=== PATIENT | female | born 1980 | race Caucasian/White ===

== ENCOUNTER 2016-10-31 22:00 | Emergency (ER) | payer OTHER ==
[~2016-10-31] VITALS: Ht 165.1 cm; Wt 99.8 kg
[~2016-10-31 22:00] MED LIST: ANUS2.5C2 PR; COLA100C3 PO; MILK OF MAGNESIUM PO; MOTR200T44 PO; REQU0.5T PO; TYLE325T5 PO
[2016-10-31] MEDS ORDERED: VYVA50CA (22:10)
[2016-10-31] MEDS ORDERED: PREG50CA (22:10)
[2016-10-31] MEDS ORDERED: ZALE10CA (22:10)
[2016-10-31] MEDS ORDERED: CARI350T20 (22:10)
[2016-10-31] MEDS ORDERED: CITA40TA4 (22:10)
[2016-11-01] MEDS ORDERED: IBUP80TA PO (05:51)
[2016-11-01 06:09] VITALS: BP 150/105
--- NOTE | 2016-11-01 08:31 | REP ---
Clinical: Trauma. Technique: AP and lateral views of the right elbow. Comparison: 01/21/2013. Findings: No acute fracture or dislocation. Skeletal structures, joint space, and surrounding soft tissues appear normal. Anterior and posterior fat pads are normal position. Impression: Normal right elbow. No acute fracture or dislocation. Signed by Patrick Dick MD 11/01/2016 08:23 A
== END 2016-11-01 06:10 | disposition home or self-care (01) ==
LOC: M ED 23:16
DX: S50.01XA Contusion of right elbow, initial encounter (principal); W19.XXXA Unspecified fall, initial encounter; Y92.018 Other place in single-family (private) house as the place of occurrence of the external cause; Y93.89 Activity, other specified; Y99.8 Other external cause status; Z79.899 Other long term (current) drug therapy; Z91.040 Latex allergy status; Z88.8 Allergy status to other drugs, medicaments and biological substances; Z91.041 Radiographic dye allergy status

== ENCOUNTER 2016-12-08 19:38 | Emergency (ER) | payer OTHER ==
[~2016-12-08] VITALS: Ht 160 cm; Wt 96.2 kg
[~2016-12-08 19:38] MED LIST changes: +CARI350T20; +CITA40TA4; +IBUP80TA PO; +PREG50CA; +VYVA50CA; +ZALE10CA
[2016-12-08] MEDS ORDERED: diazePAM 5 MG TAB PO ONE (21:00)
[2016-12-08] MEDS ORDERED: PREGABALIN 50 MG CAP (LYRICA) PO ONE ×2 (21:00)
[2016-12-08 21:20] VITALS: BP 139/80
== END 2016-12-08 21:26 | disposition home or self-care (01) ==
LOC: M ED 20:42
DX: Z76.0 Encounter for issue of repeat prescription (principal); M79.7 Fibromyalgia; J45.909 Unspecified asthma, uncomplicated; F41.9 Anxiety disorder, unspecified; Z79.899 Other long term (current) drug therapy

== ENCOUNTER 2017-02-03 18:14 | Emergency (ER) | payer OTHER ==
[~2017-02-03] VITALS: Ht 165.1 cm; Wt 95.7 kg
[~2017-02-03 18:14] MED LIST changes: +CARI350T PO; -CARI350T20; -CITA40TA4; +CITA40TA4 PO; -COLA100C3 PO; +COLA100C5 PO; -REQU0.5T PO; +REQU1TAB15 PO; -VYVA50CA; +VYVA50CA4
[2017-02-03] MEDS ORDERED: AMPHET/DEXTR PO (18:29)
[2017-02-03] MEDS ORDERED: MEDICAL MARIJUANA (18:29)
[2017-02-03] MEDS ORDERED: CBD OIL (18:29)
[2017-02-03] MEDS ORDERED: ERYTHROMYCIN OPHTH OINT As Ordered ONE (19:23)
[2017-02-03] MEDS ORDERED: TETRACAINE 0.5% OPHTH SOLN 4ML OD ONE (19:30)
[2017-02-03] MEDS ORDERED: FLUORESCEIN OPHTH 1 MG STRIP As Ordered ONE (19:43)
[2017-02-03] MEDS ORDERED: FLUORESCEIN OPHTH 1 MG STRIP OU ONE (19:45)
[2017-02-03] MEDS ORDERED: ERYTOIN8 OD (20:14)
[2017-02-03 20:25] VITALS: BP 140/99
[2017-02-03] MEDS ORDERED: ERYTHROMYCIN OPHTH OINT OD ONE (21:00)
== END 2017-02-03 20:27 | disposition home or self-care (01) ==
LOC: M ED 18:14
DX: H16.001 Unspecified corneal ulcer, right eye (principal); J45.909 Unspecified asthma, uncomplicated; K58.9 Irritable bowel syndrome, unspecified; M79.7 Fibromyalgia; G25.81 Restless legs syndrome; Z79.899 Other long term (current) drug therapy; Z91.040 Latex allergy status; Z91.041 Radiographic dye allergy status; Z88.8 Allergy status to other drugs, medicaments and biological substances

== ENCOUNTER → 2017-06-28 | Outpatient (REF) | payer OTHER ==
[~2017-06-28] MED LIST changes: +AMPHET/DEXTR PO; +CBD OIL; +ERYTOIN8 OD; +MEDICAL MARIJUANA
== END ==
LOC: M LAB REF 13:22
PROVIDERS: ATTEND Advanced Practice Midwife
DX: Z34.83 Encounter for supervision of other normal pregnancy, third trimester (principal)

== ENCOUNTER → 2017-07-07 | Outpatient (CLI) | payer OTHER ==
[2017-07-07 15:20] LABS: BASO % 0.4 % (0.0-1.0); EOS # 0.2 10^3/uL (0.0-0.50); EOS % 2.5 % (0.0-3.0); IMMATURE GRANULOCYTE % 0.7 % (0-0); LYMPH # 1.7 10^3/uL (1.5-4.5); MEAN CORPUSCULAR HEMOGLOBIN 25.1 pg (27.0-33.0); MEAN CORPUSCULAR HGB CONC 30.9 g/dl (32.0-36.5); MEAN CORPUSCULAR VOLUME 81.4 fl (80.0-96.0); MONO # 0.4 10^3/uL (0.0-0.8); MONO % 5.2 % (0.0-5.0); NEUTROPHILS # 5.1 10^3/uL (1.8-7.7); NEUTROPHILS % 68.2 % (36.0-66.0); PLATELET COUNT, AUTOMATED 228 10^3/uL (150-450); RED CELL DISTRIBUTION WIDTH 14.2 % (11.5-14.5); WHITE BLOOD COUNT 7.5 10^3/uL (4.0-10.0)
[2017-07-09 11:11] LABS: HBsAg Prenatal NEGATIVE (NEGATIVE)
== END ==
LOC: M LAB 12:52
PROVIDERS: ATTEND Advanced Practice Midwife
DX: Z3A.33 33 weeks gestation of pregnancy (principal)

== ENCOUNTER → 2017-07-08 | Outpatient (CLI) | payer OTHER ==
[~2017-07-08] MED LIST changes: +CELE40TA PO; +PRIL20CA9 PO
--- NOTE | 2017-07-08 12:59 | REP ---
Clinical: Anatomical evaluation. Comparison: None . Findings: Examination demonstrates a single live intrauterine in cephalic presentation. motion is identified by technologist. Placenta is noted anteriorly and grade one without evidence for placenta previa or abruption. Amniotic fluid volume is normal. Cervix measures 4.2 cm in length and appears closed. No evidence for nuchal cord. Gestational age by LMP 37 weeks 4 days with INOCENCIA 07/25/2017 . Gestational age by current measurements 37 weeks 0 days with INOCENCIA 07/29/2017 . FHR equals 141 beats per minute. BPD 9.2 cm 37 weeks 2 days HC 32.6 cm 36 weeks 6 days AC 33.1 cm 37 weeks 0 days FL 7.2 cm 36 weeks 6 days HL 6.4 cm 37 weeks 0 days HC/AC ratio 0.98 Estimated weight 3090 grams ( 46th percentile). Amniotic fluid index = 25.2 cm (7.4 - 24.1) Umbilical cord SD ratio = 2.32 (1.60 - 2.60) Anatomical assessment demonstrates normal structures including cranium, cavum, facial features, lungs, four-chamber heart/ventricular outflow tracts, diaphragm, stomach, cord insertion/three-vessel cord. Impression: Single live advanced gestation in cephalic presentation demonstrating appropriate interval growth. No gross anatomical abnormalities are appreciated. Signed by Patrick Dick MD 07/08/2017 12:51 P
== END ==
LOC: M RAD 11:43
PROVIDERS: ATTEND Advanced Practice Midwife
DX: Z34.83 Encounter for supervision of other normal pregnancy, third trimester (principal); Z3A.37 37 weeks gestation of pregnancy

== ENCOUNTER 2017-07-15 03:16 | Inpatient (IN) | payer OTHER ==
[~2017-07-15] VITALS: Ht 160 cm; Wt 113.0 kg
[~2017-07-15 03:16] MED LIST changes: -CELE40TA PO; -PRIL20CA9 PO
[2017-07-15 04:15] VITALS: BP 142/92
[2017-07-15] MEDS ORDERED: PRIL20CA9 PO (04:41)
[2017-07-15] MEDS ORDERED: CELE40TA PO (04:41)
[2017-07-15] MEDS ORDERED: METHYLERGONOVINE MALEATE 0.2 MG TAB PO PRN (04:45)
[2017-07-15] MEDS ORDERED: DOCUSATE SODIUM 100 MG CAP PO PRN (04:45)
[2017-07-15] MEDS ORDERED: MEASLES,MUMPS,RUBELLA VACCINE INJ (MMR-II) (90707) SC SCH (04:45)
[2017-07-15] MEDS ORDERED: ANUSOL HC CREAM 30GM TOP PRN (04:45)
[2017-07-15] MEDS ORDERED: RHOGAM 300 MCG (1500 IU) INJ (J2790) IM SCH (04:45)
[2017-07-15] MEDS ORDERED: MOM 30ML SUSPENSION UDC PO PRN (04:45)
[2017-07-15] MEDS ORDERED: DIBUCAINE 1% OINTMENT 30GM TOP PRN (04:45)
[2017-07-15] MEDS ORDERED: ACETAMINOPHEN 500 MG TAB PO PRN (04:45)
[2017-07-15] MEDS ORDERED: OXYTOCIN INJ 10 UNITS/ML VIAL (J2590) IM ONE (04:45)
[2017-07-15 04:55] VITALS: BP 140/82
[2017-07-15 05:20] VITALS: BP 128/80
--- NOTE | 2017-07-15 06:47 | HPE ---
DATE OF ADMISSION: 07/15/2017 HISTORY OF PRESENT ILLNESS: Ms. Wilhelm is a 37-year-old 5, para 4 who presents at 38 weeks, 4 days estimated gestational age (EGA) by last menstrual period (LMP), with complaints of contractions. She reports contractions started at midnight and progressively worsened. She reports active movements. Denies any vaginal bleeding. Her course is remarkable for late entry to care at 32 weeks as she had also elevated Glucola but has not completed a 3 hour glucose tolerance test. PAST MEDICAL HISTORY: 1. Fibromyalgia. 2. Posttraumatic stress disorder (PTSD). PAST SURGICAL HISTORY: She has had nasal surgery. PAST OBSTETRICAL HISTORY: She is 5, para 4. She has had 4 term vaginal deliveries. She is proven to 8 pounds, 1 ounce. ALLERGIES: 1. LATEX. 2. REGLAN. 3. IV CONTRAST. PHYSICAL EXAMINATION: VITAL SIGNS: Stable. She is afebrile. GENERAL APPEARANCE: No acute distress. ABDOMEN: Gravid, nontender. CERVICAL EXAM: She is 8 cm dilated, completely effaced with a bulging bag of fluid. LABS: Her blood type is O positive. Antibody screen is negative. Rubella is immune. RPR is nonreactive. Chlamydia and gonorrhea screens are negative. She had an elevated 1 hour Glucola of 133. She is Group B Streptococcus (GBS) negative. ASSESSMENT: 1. Ms. Wilhelm is a 37-year-old 5, para 4 at 38 weeks 4 days estimated gestational age (EGA) in active labor. 2. Reassuring status on heart rate tracing. PLAN: 1. Admit to labor and delivery. CBC, RPR, type and screen. 2. Anticipate spontaneous vaginal delivery.
--- NOTE | 2017-07-15 06:50 | DN ---
DATE: 07/15/2017 TIME OF : 041 GENDER: Male. APGARS: 9 and 9. WEIGHT: 3010 grams or 6 pounds 10 ounces. LACERATIONS: None. ANESTHESIA: None. ESTIMATED BLOOD LOSS: 300 mL. DELIVERY NOTE: On the July, at 0410, Ms. Wilhelm, a 37-year-old, 5, now para 5, had a spontaneous vaginal delivery of a live born male infant, Apgars 9 and 9, weight 3010 grams or 6 pounds 10 ounces. Head was delivered occiput anterior (OA) over an intact perineum, followed by delivery of shoulders and corpus. The was handed to the mom with a good cry. The cord was clamped times two and was cut. Cord blood was then obtained. Placenta was then drained and delivered grossly intact. 10 units of Pitocin was given intramuscular (IM). On inspection, the cervix, vagina and perineum was grossly intact and hemostatic. Mom and baby to recovery in stable condition. The couple has decided to name their son Loy.
[2017-07-15 07:01] VITALS: BP 147/104
[2017-07-15 07:47] LABS: MEAN CORPUSCULAR HEMOGLOBIN 24.9 pg (27.0-33.0); MEAN CORPUSCULAR HGB CONC 31.4 g/dl (32.0-36.5); MEAN CORPUSCULAR VOLUME 79.4 fl (80.0-96.0); PLATELET COUNT, AUTOMATED 211 10^3/uL (150-450); RED CELL DISTRIBUTION WIDTH 14.6 % (11.5-14.5); WHITE BLOOD COUNT 12.4 10^3/uL (4.0-10.0)
[2017-07-15] MEDS: IBUPROFEN 800 MG TAB PO PRN ×2 (09:23→18:21)
[2017-07-15] MEDS: PRENATAL VITAMINS CHEWABLE TABLET PO SCH (09:23)
[2017-07-15] MEDS: rOPINIRole 1MG TAB PO SCH ×2 (11:10→21:05)
[2017-07-15 18:21] VITALS: BP 173/102
[2017-07-15] MEDS: PERCOCET 5MG/325MG TAB PO PRN (18:39)
[2017-07-15] MEDS ORDERED: PERCOCET 5MG/325MG TAB PO PRN (18:45)
[2017-07-16] VITALS (10 sets, daily range): BP systolic 114–166; BP diastolic 55–102
[2017-07-16] MEDS: PERCOCET 5MG/325MG TAB PO PRN ×3 (00:58→20:11)
[2017-07-16 08:09] LABS: MEAN CORPUSCULAR HEMOGLOBIN 25.1 pg (27.0-33.0); MEAN CORPUSCULAR VOLUME 80.9 fl (80.0-96.0); PLATELET COUNT, AUTOMATED 194 10^3/uL (150-450); RED CELL DISTRIBUTION WIDTH 14.6 % (11.5-14.5); WHITE BLOOD COUNT 8.1 10^3/uL (4.0-10.0)
[2017-07-16] MEDS: FERRO SEQUEL PO SCH ×2 (08:13→20:09)
[2017-07-16] MEDS: rOPINIRole 1MG TAB PO SCH ×2 (08:13→20:09)
[2017-07-16] MEDS: PRENATAL VITAMINS CHEWABLE TABLET PO SCH (08:13)
[2017-07-16] MEDS: IBUPROFEN 800 MG TAB PO PRN (08:14)
[2017-07-16 08:46] LABS: ALBUMIN/GLOBULIN RATIO 0.63 (1.00-1.93); ALKALINE PHOSPHATASE 109 U/L (45-117); ALT/SGPT 16 U/L (12-78); ANION GAP 10 MEQ/L (8-16); AST/SGOT 28 U/L (7-37); BILIRUBIN,TOTAL 0.2 MG/DL (0.2-1.0); BLOOD UREA NITROGEN 8 MG/DL (7-18); CALCIUM LEVEL 7.9 MG/DL (8.5-10.1); CARBON DIOXIDE LEVEL 23 MEQ/L (21-32); CHLORIDE LEVEL 108 MEQ/L (98-107); CREATININE FOR GFR 0.77 MG/DL (0.55-1.02); GLOMERULAR FILTRATION RATE > 60.0 (>60); GLUCOSE, FASTING 76 MG/DL (70-105); POTASSIUM SERUM 3.7 MEQ/L (3.5-5.1); SODIUM LEVEL 141 MEQ/L (136-145); TOTAL PROTEIN 5.2 GM/DL (6.4-8.2); URIC ACID 5.7 MG/DL (2.6-6.0)
[2017-07-16] MEDS ORDERED: INFLUENZA QUADRIVALENT PF VACCINE 0.5ML SYRINGE (90686) IM ONE (09:00)
[2017-07-16] MEDS: CitaloPRAM (CeleXA) 20 MG TAB PO SCH (09:44)
[2017-07-16] MEDS: ONDANSETRON 4 MG ORAL DISINTEGRATING TAB (S0181) SL SCH ×2 (12:22→17:42)
[2017-07-16] MEDS: LABETALOL 100 MG TAB PO SCH (17:04)
[2017-07-17] MEDS: ONDANSETRON 4 MG ORAL DISINTEGRATING TAB (S0181) SL SCH ×3 (00:21→12:12)
[2017-07-17 02:40] VITALS: BP 133/80
[2017-07-17] MEDS: PERCOCET 5MG/325MG TAB PO PRN ×2 (06:03→12:15)
[2017-07-17 06:06] VITALS: BP 142/70
[2017-07-17] MEDS: LABETALOL 100 MG TAB PO SCH (06:06)
[2017-07-17 06:48] LABS: MEAN CORPUSCULAR HEMOGLOBIN 24.8 pg (27.0-33.0); MEAN CORPUSCULAR HGB CONC 30.8 g/dl (32.0-36.5); MEAN CORPUSCULAR VOLUME 80.7 fl (80.0-96.0); PLATELET COUNT, AUTOMATED 158 10^3/uL (150-450); RED CELL DISTRIBUTION WIDTH 14.6 % (11.5-14.5)
[2017-07-17 07:08] LABS: ALT/SGPT 14 U/L (12-78); AST/SGOT 21 U/L (7-37); BILIRUBIN,TOTAL < 0.1 MG/DL (0.2-1.0); CREATININE FOR GFR 0.77 MG/DL (0.55-1.02); GLOMERULAR FILTRATION RATE > 60.0 (>60); URIC ACID 5.6 MG/DL (2.6-6.0)
[2017-07-17 07:30] VITALS: BP 154/92
[2017-07-17 07:35] VITALS: BP 140/88
[2017-07-17] MEDS ORDERED: INFLUENZA QUADRIVALENT PF VACCINE 0.5ML SYRINGE (90686) IM ONE (09:00)
[2017-07-17] MEDS: CitaloPRAM (CeleXA) 20 MG TAB PO SCH (09:52)
[2017-07-17] MEDS: PRENATAL VITAMINS CHEWABLE TABLET PO SCH (09:52)
[2017-07-17] MEDS: FERRO SEQUEL PO SCH (09:52)
[2017-07-17] MEDS: rOPINIRole 1MG TAB PO SCH (09:53)
[2017-07-17 12:10] VITALS: BP 140/88
[2017-07-17] MEDS ORDERED: LABE10TAB PO (12:43)
[2017-07-17] MEDS ORDERED: IBUP-1114 PO (12:43)
[2017-07-17] MEDS ORDERED: ACET50TA PO (12:43)
[2017-07-18] MEDS ORDERED: SOMA350T PO (10:02)
== END 2017-07-17 13:45 | disposition home or self-care (01) | DRG 775 ==
LOC: M LDO 03:16 → M LDI 03:22 → M OBS 07:00
PROVIDERS: ADMIT Obstetrics & Gynecology; ATTEND Obstetrics & Gynecology
PROC: 10E0XZZ Delivery of Products of Conception, External Approach (ICD-10-PCS; principal; 2017-07-15)
DX: O80 Encounter for full-term uncomplicated delivery (principal); Z3A.38 38 weeks gestation of pregnancy; Z37.0 Single live birth; Z91.040 Latex allergy status; Z91.041 Radiographic dye allergy status; Z88.8 Allergy status to other drugs, medicaments and biological substances

== ENCOUNTER → 2017-09-23 | Outpatient (REF) | payer OTHER ==
[2017-09-23 20:09] LABS: BASO # 0.1 10^3/uL (0.0-0.2); EOS # 0.3 10^3/uL (0.0-0.50); HEMATOCRIT 32.1 % (36.0-47.0); HEMOGLOBIN 9.2 g/dl (12.0-16.0); IMMATURE GRANULOCYTE % 0.3 % (0-3.0); LYMPH # 2.6 10^3/uL (1.5-4.5); LYMPH % 42.3 % (24.0-44.0); MEAN CORPUSCULAR HEMOGLOBIN 22.8 pg (27.0-33.0); MEAN CORPUSCULAR HGB CONC 28.7 g/dl (32.0-36.5); MEAN CORPUSCULAR VOLUME 79.5 fl (80.0-96.0); MONO # 0.4 10^3/uL (0.0-0.8); MONO % 6.5 % (0.0-5.0); NEUTROPHILS # 2.8 10^3/uL (1.8-7.7); NEUTROPHILS % 44.9 % (36.0-66.0); PLATELET COUNT, AUTOMATED 428 10^3/uL (150-450); RED BLOOD COUNT 4.04 10^6/uL (4.00-5.40); RED CELL DISTRIBUTION WIDTH 15.7 % (11.5-14.5); WHITE BLOOD COUNT 6.1 10^3/uL (4.0-10.0)
[2017-09-23 20:20] LABS: ALBUMIN 3.6 GM/DL (3.2-5.2); ALBUMIN/GLOBULIN RATIO 0.95 (1.00-1.93); ALKALINE PHOSPHATASE 128 U/L (45-117); ALT/SGPT 26 U/L (12-78); ANION GAP 9 MEQ/L (8-16); AST/SGOT 24 U/L (7-37); BILIRUBIN,TOTAL 0.2 MG/DL (0.2-1.0); BLOOD UREA NITROGEN 14 MG/DL (7-18); CALCIUM LEVEL 8.8 MG/DL (8.5-10.1); CARBON DIOXIDE LEVEL 28 MEQ/L (21-32); CHLORIDE LEVEL 103 MEQ/L (98-107); CREATININE FOR GFR 0.76 MG/DL (0.55-1.30); FREE T4 1.04 NG/DL (0.76-1.46); GLOMERULAR FILTRATION RATE > 60.0 (>60); GLUCOSE, FASTING 88 MG/DL (70-100); POTASSIUM SERUM 4.4 MEQ/L (3.5-5.1); SODIUM LEVEL 140 MEQ/L (136-145); TOTAL PROTEIN 7.4 GM/DL (6.4-8.2)
== END ==
LOC: M SFHCADAM 16:54
DX: O90.81 Anemia of the puerperium (principal); O10.919 Unspecified pre-existing hypertension complicating pregnancy, unspecified trimester
CPT/HCPCS: 84443

== ENCOUNTER → 2017-10-14 | Outpatient (CLI) | payer OTHER | LOC: M EKG 15:33 | DX: Z01.818 Encounter for other preprocedural examination (principal); R94.31 Abnormal electrocardiogram [ECG] [EKG]; J45.909 Unspecified asthma, uncomplicated; I10 Essential (primary) hypertension; K21.9 Gastro-esophageal reflux disease without esophagitis; M79.7 Fibromyalgia; R06.83 Snoring | CPT/HCPCS: 93005 ==

== ENCOUNTER 2017-10-15 12:34 | Day surgery (SDC) | payer OTHER ==
[2017-10-15] MEDS ORDERED: MIDAZOLAM INJ 2 MG/2 ML VIAL (J2250) As Ordered (12:36)
[2017-10-15] MEDS ORDERED: NEOSTIGMINE 10 MG/10 ML VIAL (J2710) As Ordered (12:36)
[2017-10-15] MEDS ORDERED: PROPOFOL 200 MG/20 ML VIAL As Ordered (12:36)
[2017-10-15] MEDS ORDERED: LIDOCAINE 2% INJ 100 MG/5 ML SDV (FOR ANES.) As Ordered (12:36)
[2017-10-15] MEDS ORDERED: dexameTHASONE 4 MG/ML 1ML VIAL (J1100) As Ordered (12:36)
[2017-10-15] MEDS ORDERED: ONDANSETRON 4MG/2ML VIAL (J2405) As Ordered (12:36)
[2017-10-15] MEDS ORDERED: ROCURONIUM BROMIDE 50 MG/5 ML VIAL As Ordered (12:36)
[2017-10-15] MEDS ORDERED: GLYCOPYRROLATE INJ 0.2 MG/ML 2 ML VIAL As Ordered (12:36)
[2017-10-15] MEDS ORDERED: KETOROLAC 60 MG/2 ML VIAL (J1885) As Ordered (12:36)
[2017-10-15] MEDS ORDERED: fentaNYL 100 MCG/2 ML INJECTION (J3010) As Ordered ×2 (12:37→15:33)
[2017-10-15 13:00] LABS: HEMOGLOBIN 10.3 g/dl (12.0-16.0); MEAN CORPUSCULAR HEMOGLOBIN 22.9 pg (27.0-33.0); MEAN CORPUSCULAR HGB CONC 30.3 g/dl (32.0-36.5); MEAN CORPUSCULAR VOLUME 75.7 fl (80.0-96.0); PLATELET COUNT, AUTOMATED 372 10^3/uL (150-450); RED BLOOD COUNT 4.49 10^6/uL (4.00-5.40); RED CELL DISTRIBUTION WIDTH 14.9 % (11.5-14.5); WHITE BLOOD COUNT 5.2 10^3/uL (4.0-10.0)
[2017-10-15] MEDS: LR 1,000 ML IV ×2 (13:21→15:25)
[2017-10-15 13:31] LABS: CONTROL LINE HCG INT CTR LINE PRESENT; HCG, SERUM QUALITATIVE NEGATIVE (NEGATIVE)
[2017-10-15] MEDS: BUPIVACAINE HCL 0.25% 10 ML VIAL As Ordered (14:56)
[2017-10-15] MEDS ORDERED: PERCOCET 5MG/325MG TAB As Ordered (15:33)
[2017-10-15] MEDS: fentaNYL 100 MCG/2 ML INJECTION (J3010) IV ×4 (15:35→15:57)
[2017-10-15] MEDS: PERCOCET 5MG/325MG TAB PO ×2 (15:35→16:00)
[2017-10-15] MEDS ORDERED: ONDANSETRON 4MG/2ML VIAL (J2405) IV (15:45)
[2017-10-15] MEDS ORDERED: HYDROmorphone HCL 1 MG/ML SYRINGE (J1170) IV (15:45)
[2017-10-15] MEDS ORDERED: KETOROLAC 30 MG/ML VIAL (J1885) As Ordered (16:04)
[2017-10-15] MEDS: KETOROLAC 30 MG/ML VIAL (J1885) IV (16:05)
[2017-10-15] MEDS ORDERED: PERCOCET 5MG/325MG TAB PO (16:15)
== END 2017-10-15 17:30 | disposition home or self-care (01) ==
LOC: M SDC 12:34
DX: Z30.2 Encounter for sterilization (principal); I10 Essential (primary) hypertension; K21.9 Gastro-esophageal reflux disease without esophagitis; Z79.899 Other long term (current) drug therapy; M79.7 Fibromyalgia; J45.909 Unspecified asthma, uncomplicated; Z91.040 Latex allergy status; Z91.041 Radiographic dye allergy status
CPT/HCPCS: 58671

== ENCOUNTER 2017-12-09 19:46 | Emergency (ER) | payer OTHER ==
[2017-12-09] MEDS: NORCO 5/325MG TABLET (BULK FOR ED) PO (20:57)
== END 2017-12-09 20:59 | disposition home or self-care (01) ==
LOC: M ED 19:46
DX: M25.562 Pain in left knee (principal); Z87.828 Personal history of other (healed) physical injury and trauma; J45.909 Unspecified asthma, uncomplicated; I10 Essential (primary) hypertension; K58.9 Irritable bowel syndrome, unspecified; Z98.890 Other specified postprocedural states; Z91.041 Radiographic dye allergy status; Z88.8 Allergy status to other drugs, medicaments and biological substances; Z91.040 Latex allergy status; Z79.899 Other long term (current) drug therapy
CPT/HCPCS: 99283

== ENCOUNTER → 2018-02-01 | Outpatient (REF) | payer OTHER ==
[2018-02-01 13:53] LABS: BASO # 0.1 10^3/uL (0.0-0.2); BASO % 1.1 % (0.0-1.0); EOS # 0.2 10^3/uL (0.0-0.50); EOS % 2.7 % (0.0-3.0); HEMATOCRIT 37.5 % (36.0-47.0); HEMOGLOBIN 11.1 g/dl (12.0-15.5); IMMATURE GRANULOCYTE % 0.2 % (0-3.0); LYMPH # 2.2 10^3/uL (1.5-4.5); LYMPH % 39.4 % (24.0-44.0); MEAN CORPUSCULAR HEMOGLOBIN 22.6 pg (27.0-33.0); MEAN CORPUSCULAR HGB CONC 29.6 g/dl (32.0-36.5); MEAN CORPUSCULAR VOLUME 76.2 fl (80.0-96.0); MONO # 0.4 10^3/uL (0.0-0.8); MONO % 6.7 % (0.0-5.0); NEUTROPHILS # 2.8 10^3/uL (1.8-7.7); NEUTROPHILS % 49.9 % (36.0-66.0); PLATELET COUNT, AUTOMATED 327 10^3/uL (150-450); RED BLOOD COUNT 4.92 10^6/uL (4.00-5.40); RED CELL DISTRIBUTION WIDTH 16.3 % (11.5-14.5); WHITE BLOOD COUNT 5.7 10^3/uL (4.0-10.0)
== END ==
LOC: M SFHCADAM 11:32
DX: O90.81 Anemia of the puerperium (principal)

== ENCOUNTER 2018-02-03 21:08 | Emergency (ER) | payer OTHER ==
[2018-02-03] MEDS: BACITRACIN OINT 30GM TOP (22:30)
[2018-02-03] MEDS: NORCO, ANEXSIA 5/325MG TABLET (HYDROcodone/ACETAMINOPHEN) PO (22:39)
== END 2018-02-03 23:02 | disposition home or self-care (01) ==
LOC: M ED 21:08
DX: T23.291A Burn of second degree of multiple sites of right wrist and hand, initial encounter (principal); T23.231D Burn of second degree of multiple right fingers (nail), not including thumb, subsequent encounter; T31.0 Burns involving less than 10% of body surface; W39.XXXA Discharge of firework, initial encounter; Y92.099 Unspecified place in other non-institutional residence as the place of occurrence of the external cause; Y93.9 Activity, unspecified; Y99.9 Unspecified external cause status; G25.81 Restless legs syndrome; I10 Essential (primary) hypertension; J45.909 Unspecified asthma, uncomplicated; K58.9 Irritable bowel syndrome, unspecified; F41.9 Anxiety disorder, unspecified; F32.9 Major depressive disorder, single episode, unspecified; Z79.899 Other long term (current) drug therapy; Z91.041 Radiographic dye allergy status; Z91.040 Latex allergy status; Z88.8 Allergy status to other drugs, medicaments and biological substances
CPT/HCPCS: 99282

== ENCOUNTER 2018-02-14 16:36 | Emergency (ER) | payer OTHER ==
[2018-02-14] MEDS: traMADol 50 MG TAB PO (18:14)
== END 2018-02-14 18:15 | disposition home or self-care (01) ==
LOC: M ED 16:36
DX: M79.7 Fibromyalgia (principal); Z76.0 Encounter for issue of repeat prescription; G25.81 Restless legs syndrome; K58.9 Irritable bowel syndrome, unspecified; Z79.899 Other long term (current) drug therapy; Z91.041 Radiographic dye allergy status; Z91.040 Latex allergy status; Z88.8 Allergy status to other drugs, medicaments and biological substances
CPT/HCPCS: 99283

== ENCOUNTER → 2018-02-21 | Outpatient (CLI) | payer OTHER | LOC: M PAIN 09:30 | DX: M79.7 Fibromyalgia (principal); Z79.891 Long term (current) use of opiate analgesic; F32.9 Major depressive disorder, single episode, unspecified; F50.81 Binge eating disorder; Z79.899 Other long term (current) drug therapy; Z91.040 Latex allergy status | CPT/HCPCS: G0463 ==

== ENCOUNTER 2018-06-03 22:25 | Emergency (ER) | payer OTHER ==
[2018-06-03] MEDS: traMADol 50 MG TAB (BULK 4 TAB ED) PO (23:16)
== END 2018-06-03 23:20 | disposition home or self-care (01) ==
LOC: M ED 22:25
DX: M79.7 Fibromyalgia (principal); R11.0 Nausea; F43.10 Post-traumatic stress disorder, unspecified; F98.8 Other specified behavioral and emotional disorders with onset usually occurring in childhood and adolescence; Z91.040 Latex allergy status; Z91.041 Radiographic dye allergy status; Z88.8 Allergy status to other drugs, medicaments and biological substances; Z79.899 Other long term (current) drug therapy
CPT/HCPCS: 99283

== ENCOUNTER 2018-06-17 18:36 | Emergency (ER) | payer OTHER ==
[2018-06-17] MEDS: traMADol 50 MG TAB PO (20:07)
== END 2018-06-17 20:13 | disposition home or self-care (01) ==
LOC: M ED 18:36
DX: M79.10 Myalgia, unspecified site (principal); M79.7 Fibromyalgia; M54.5 Low back pain; Z76.0 Encounter for issue of repeat prescription; I10 Essential (primary) hypertension; J45.909 Unspecified asthma, uncomplicated; K58.9 Irritable bowel syndrome, unspecified; Z91.040 Latex allergy status; Z88.8 Allergy status to other drugs, medicaments and biological substances; Z91.041 Radiographic dye allergy status; Z79.899 Other long term (current) drug therapy
CPT/HCPCS: 99283

== ENCOUNTER 2018-06-27 15:32 | Emergency (ER) | payer OTHER ==
[2018-06-27 17:02] LABS: BASO # 0.1 10^3/uL (0.0-0.2); BASO % 0.8 % (0.0-1.0); EOS # 0.2 10^3/uL (0.0-0.50); EOS % 2.6 % (0.0-3.0); HEMOGLOBIN 11.8 g/dl (12.0-15.5); IMMATURE GRANULOCYTE % 0.3 % (0-3.0); LYMPH # 2.1 10^3/uL (1.5-4.5); LYMPH % 26.8 % (24.0-44.0); MEAN CORPUSCULAR HEMOGLOBIN 24.6 pg (27.0-33.0); MEAN CORPUSCULAR HGB CONC 30.3 g/dl (32.0-36.5); MEAN CORPUSCULAR VOLUME 81.4 fl (80.0-96.0); MONO # 0.5 10^3/uL (0.0-0.8); NEUTROPHILS % 63.5 % (36.0-66.0); PLATELET COUNT, AUTOMATED 253 10^3/uL (150-450); RED BLOOD COUNT 4.79 10^6/uL (4.00-5.40); RED CELL DISTRIBUTION WIDTH 15.2 % (11.5-14.5); WHITE BLOOD COUNT 7.8 10^3/uL (4.0-10.0)
[2018-06-27 17:08] LABS: CONTROL LINE HCG INT CTR LINE PRESENT; HCG, SERUM QUALITATIVE NEGATIVE (NEGATIVE)
[2018-06-27] MEDS: NS 1,000 ML IV (17:12)
[2018-06-27 17:17] LABS: AMORPHOUS SEDIMENT RFX LARGE (NEGATIVE); KETONE, URINE AUTO RFX NEGATIVE (NEGATIVE); LEUKOCYTE ESTERASE UR AUTO RFX NEGATIVE (NEGATIVE); NITRITE, URINE AUTO RFX NEGATIVE (NEGATIVE); RBC, URINE AUTO RFX 1 /HPF (0-3); SPECIFIC GRAVITY UR AUTO RFX 1.019 (1.002-1.035); SQUAM EPITHELIAL CELL UR AURFX 0 /HPF (0-6); WBC, URINE AUTO RFX 1 /HPF (0-3)
[2018-06-27 17:18] LABS: ANION GAP 8 MEQ/L (8-16); BLOOD UREA NITROGEN 15 MG/DL (7-18); CARBON DIOXIDE LEVEL 25 MEQ/L (21-32); CHLORIDE LEVEL 108 MEQ/L (98-107); CREATININE FOR GFR 0.94 MG/DL (0.55-1.30); ETHYL ALCOHOL (ETHANOL) < 0.003 % (0.000-0.010); GLOMERULAR FILTRATION RATE > 60.0 (>60); GLUCOSE, FASTING 86 MG/DL (70-100); MAGNESIUM LEVEL 2.2 MG/DL (1.8-2.4); POTASSIUM SERUM 4.4 MEQ/L (3.5-5.1); SODIUM LEVEL 141 MEQ/L (136-145)
[2018-06-27 17:39] LABS: AMPHETAMINES LEVEL URINE NEGATIVE (NEGATIVE); BARBITURATES URINE NEGATIVE (NEGATIVE); BENZODIAZEPINES URINE NEGATIVE (NEGATIVE); CANNABINOIDS URINE NEGATIVE (NEGATIVE); COCAINE METABOLITE URINE NEGATIVE (NEGATIVE); METHADONE URINE NEGATIVE (NEGATIVE); OPIATES URINE NEGATIVE (NEGATIVE); PHENCYCLIDINE URINE NEGATIVE (NEGATIVE)
[2018-06-29 09:32] LABS: BEDSIDE GLUCOSE 91 MG/DL (70-105)
== END 2018-06-27 19:28 | disposition home or self-care (01) ==
LOC: M ED 15:32
DX: I95.1 Orthostatic hypotension (principal)
CPT/HCPCS: 70450

== ENCOUNTER 2018-08-29 04:52 | Emergency (ER) | payer OTHER ==
[~2018-08-29] VITALS: Ht 160 cm; Wt 90.9 kg
[~2018-08-29 04:52] MED LIST changes: +ADDE20CA3 PO; +BACI500O8 TOP; +CARI1TAB7 PO; -CARI350T PO; +CELE40TA PO; +CLON0.5T8 PO; +HYDR12CA PO; +HYDR50TA70; +IBUP-1022 PO; +IBUP-1114 PO; +LABE10TAB PO; +MAPA500T2 PO; +PRIL20CA9 PO; +REQU0.5T PO; -REQU1TAB15 PO; +SOMA350T PO; +TRAM50TA2 PO; +ZALE10CA PO; +ZOFR4TAB14 PO
[2018-08-29 04:53] VITALS: BP 124/73
[2018-08-29] MEDS ORDERED: ROPI2TAB (05:03)
[2018-08-29] MEDS ORDERED: CLON0.5T8 (05:03)
[2018-08-29] MEDS ORDERED: PREG50CA (05:03)
[2018-08-29] MEDS ORDERED: traMADol 50 MG TAB PO ONE (05:45)
== END 2018-08-29 06:02 | disposition home or self-care (01) ==
LOC: M ED 05:51
DX: Z76.5 Malingerer [conscious simulation] (principal); F19.20 Other psychoactive substance dependence, uncomplicated; M79.7 Fibromyalgia; G89.29 Other chronic pain; F41.9 Anxiety disorder, unspecified; Z79.899 Other long term (current) drug therapy; Z91.041 Radiographic dye allergy status; Z88.8 Allergy status to other drugs, medicaments and biological substances; Z91.040 Latex allergy status

== ENCOUNTER → 2018-09-06 | Outpatient (CLI) | payer OTHER ==
[~2018-09-06] MED LIST changes: +CLON0.5T8; +ROPI2TAB
--- NOTE | 2018-09-18 23:46 | ECWPNPC ---
PATIENT NAME: CARLOS LEZAMA : 1980 GENDER: FEMALE VISIT DATE: 09/06/2018 DISCHARGE DATE: 09/06/18 1524 VISIT LOCKED DATE TIME: PHYSICIAN: RAFIA MATTHEWS RESOURCE: RAFIA MATTHEWS REASON FOR APPOINTMENT 1. GENERALIZED PAIN HISTORY OF PRESENT ILLNESS HISTORY OF PRESENT ILLNESS: HERE FOR F/U OF CHRONIC GENERALIZED BODY PAIN WITH HISTORY OF FIBROMYALGIA.WAS RECENTLY TRIALED ON LYRICA 50MG TID THAT WAS MINIMALLY EFFECTIVE BUT TOO EXPENSIVE COPAY.HAS BEEN HAVING A SEVERE FLARE UP OVER THE PAST 3 MONTHS.HAS TRIALED TRAMADOL 50MG PRN IN PAST THAT WAS HELPFUL.SHE IS HAVING A GOAL TO GET BACK TO EXCERSISE AND WEIGHT REDUCTION BUT HER PAIN HAS BEEN KEEPING HER FROM PARTICIPATING IN EXCERSISE.RATING PAIN VAS 7/10. PAIN THE PATIENT DESCRIBES THE PAIN... FALL RISK SCREENING: SCREENING :NO FALLS IN THE PAST YEAR CURRENT MEDICATIONS TAKING IRON 325 (65 FE) MG TABLET 2 TABS ORALLY DAILY TAKING REQUIP 2 MG TABLET 1 TAB ORALLY DAILY, NOTES: LITTEL TAKING LYRICA 50 MG CAPSULE 1 CAPSULE ORALLY TID TAKING ADDERALL 20 MG TABLET 2 TABLET ORALLY TWICE A DAY MEDICATION LIST REVIEWED AND RECONCILED WITH THE PATIENT PAST MEDICAL HISTORY 'S VASECTOMY FAILED, 2016 DEPRESSION (RICO) WITH SI (SLITTING HER WRISTS) BINGE EATING DISORDER VAGINAL DELIVERY (07/2017) ALLERGIES LATEX (FOR ALLERGY USE ONLY): HIVES/RASH/BREATHING PROBLEMS: ALLERGY DULOXETINE HCL: ANXIOUS: SIDE EFFECTS REGLAN: ANXIETY: SIDE EFFECTS CONTRAST DYE: MIGRAINE: SIDE EFFECTS SURGICAL HISTORY NASAL SURGERY- [facility] REPAIR BROKEN NOSE 2006 TUBAL LIGATION 10-15-17 FAMILY HISTORY FATHER: ALIVE 72 YRS, DIAGNOSED WITH HYPERTENSION, STROKE, CANCER MOTHER: ALIVE 67 YRS, DIAGNOSED WITH DIABETES, HYPERTENSION SIBLINGS: ALIVE 42 YRS, DIAGNOSED WITH HYPERTENSION 1 BROTHER(S) - HEALTHY. 4 SON(S) - HEALTHY. SOCIAL HISTORY GENERAL: TOBACCO USE ARE YOU A:NONSMOKER BMI CARE GOAL FOLLOW-UP ABOVE NORMAL BMI FOLLOW-UPDIETARY MANAGEMENT EDUCATION, GUIDANCE, AND COUNSELING ALCOHOL SCREENING DID YOU HAVE A DRINK CONTAINING ALCOHOL IN THE PAST YEAR?NO POINTS0 INTERPRETATIONNEGATIVE RECREATIONAL DRUG USE DRUG USE?NO CAFFEINE CAFFEINE USE?YES HOW OFTEN AND HOW MUCH? 1-2 CUPS/DAY SEXUAL HX HAD SEX IN THE LAST 12 MONTHS (VAGINAL, ORAL, OR ANAL)?YES WITHMEN ONLY USE PROTECTION?NO HAVE YOU EVER HAD AN STD?NO LMP:05/31/16 HIV / HEP-C SCREENING HIV TEST OFFERED TO PATIENT:YES DATE OFFERED:10/25/2017 TEST ACCEPTED:NO PREVIOUSLY DONE REASON:PATIENT DECLINED BROCHURE PROVIDED TO PATIENTNO HEP-C TEST OFFERED TO PATIENT:NO EPISCOPALIAN NO BUDDHISM BELIEFS THAT WOULD IMPACT HEALTH CARE. LANGUAGE YEMENI. EDUCATION LEVEL OF EDUCATION:NOT FINISHED HIGH SCHOOL LEARNING BARRIERS / SPECIAL NEEDS BARRIERS TO LEARNING?NO HEARING IMPAIRED?NO VISION IMPAIRED?NO COGNITIVELY IMPAIRED?NO READINESS TO LEARN?YES LEARNING PREFERENCES?NO LEARNING CAPABILITIES PRESENT?YES EMOTIONAL BARRIERS?NO DOMESTIC VIOLENCE STATUS: DOES THE PATIENT DIVULGE THAT THE PARTNER HIT THEM?NO DO YOU FEEL SAFE IN YOUR ENVIRONMENT?NO HAS ORDER OF PROTECTION OCCUPATION: UNEMPLOYED- CERTIFIED EMT . DIET: REGULAR. EXERCISE: NO REGULAR EXERCISE. MARITAL STATUS: . OTHERS AT HOME: SPOUSE, CHILDREN (4 CHILDREN). PAIN CLINIC PFS, CLERGY, PUBLIC HEALTH REFERRALS HAS THE PATIENT BEEN EDUCATED REGARDING HIS/HER PLAN OF CARE?YES HAS THE PATIENT BEEN EDUCATED REGARDING PAIN, THE RISK FOR PAIN, THE IMPORTANCE OF EFFECTIVE PAIN MANAGEMENT, AND THE PAIN ASSESSMENT PROCESS?YES ADVANCE DIRECTIVE ADVANCE DIRECTIVE DISCUSSED WITH PATIENT:YES DECLINED HCP INFORMATION. REVIEWED WITH PATIENT 09/06/18 1436 JS. HOSPITALIZATION/MAJOR DIAGNOSTIC PROCEDURE CHILDBIRTH X 4 [facility] 1998,2003,2010,2013 REVIEW OF SYSTEMS REVIEWED BY: PROVIDER: RAFIA LAMB . CONSTITUTIONAL: ANY CHANGE IN YOUR MEDICAL CONDITION? NO . CHILLS NO . FEVER NO . INFECTION: DO YOU HAVE NEW INFECTIONS? NO . DO YOU HAVE HISTORY OF MRSA? NO . MUSCULOSKELETAL: ANY NEW PATTERNS OF PAIN OR NUMBNESS? NO . GASTROENTEROLOGY: ANY NEW CHANGE IN BOWEL CONTROL? NO . GENITOURINARY: ANY NEW CHANGE IN BLADDER CONTROL? NO . IS THERE A CHANCE YOU COULD BE ? NO . HEMATOLOGY/LYMPH: DO YOU TAKE ANY BLOOD THINNERS? (FOR EXAMPLE- COUMADIN, PLAVIX, AGGRENOX, PLATEL, PRADAXA, OR XARELTO) NO . WHEN WAS YOUR LAST DOSE? DATE: TIME: . NEUROLOGY: HAVE YOU FALLEN IN THE PAST 12 MONTHS? NO . ANY NEW EXTREMITY NUMBNESS OR WEAKNESS? NO . CARDIOLOGY: DO YOU HAVE A PACEMAKER OR DEFIBRILLATOR? NO . RESPIRATORY: HAVE YOU BEEN SICK IN THE PAST WEEK? NO . FEVER NO . FLU LIKE SYMPTOMS? NO . COUGH NO . INTEGUMENTARY: DO YOU HAVE ANY RASHES OR OPEN SORES? NO . ALLERGIC/IMMUNO: ARE YOU ALLERGIC TO IV DYE? YES, IV DYE . ANY NEW ALLERGIES? NO . PSYCHIATRIC: DO YOU HAVE THOUGHTS OF HURTING YOURSELF OR SOMEONE ELSE? NO . ARE YOU ABUSED, NEGLECTED, OR IN AN UNSAFE ENVIRONMENT? NO . ENDOCRINOLOGY: ARE YOU DIABETIC? NO . OTHER: DO YOU NEED ANY PRESCRIPTIONS? YES . IF YES, PLEASE LIST: ____WOULD LIKE TO BE PUT ON TRAMADOL AGAIN . ANY NEW PROBLEMS WITH YOUR MEDICATIONS? NO . WHEN DID YOU LAST EAT? ____ . WHEN DID YOU LAST DRINK? ____ . WHAT DID YOU LAST DRINK? ____ . NAME OF PERSON DRIVING YOU HOME? ____ . DO YOU HAVE ANY OTHER QUESTIONS OR CONCERNS NO . VITAL SIGNS WT 203.8 LBS, HT 66.5 IN, BMI 32.40 INDEX, BP 140/89 MM HG, HR 117 /MIN, RR 18 /MIN, TEMP 97.2 F, OXYGEN SAT % 96%, SAFE IN ENV? (Y/N) YES, NA INITIALS SC 14:23, REVIEWED BY: FRANNIE. EXAMINATION GENERAL EXAMINATION: GENERAL APPEARANCE:AWAKE,ALERT ,PLEAASANT . PSYCHAFFECT NORMAL . LUNGS:LUNG VALENZUELA ARE CLEAR TO AUSCULTATION BILATERALLY. GOOD MOVEMENT OF AIR . HEART:S1, S2 IN A REGULAR RATE AND RHYTHM. NO SIGNIFICANT MURMURS, RUBS OR GALLOPS NOTED . MUSCULOSKELETAL:MUSCLE STRENGTH TESTING 5/5 BILATERAL UPPER/LOWER EXTREMITIES. HIP / THIGH: HIP:BILATERAL. PALPATION:TENDERNESS OVER TROCHANTERIC BURSA BILAT. ASSESSMENTS FIBROMYALGIA - M79.7 (PRIMARY) PAIN IN LEFT HIP - M25.552 PAIN IN RIGHT HIP - M25.551 TREATMENT FIBROMYALGIA START TRAMADOL HCL TABLET, 50 MG, 1 TABLET NEEDED, ORALLY, EVERY 6 HRS MDD4, 30 DAY(S), 120, REFILLS 1 PROCEDURE CODES FA211 ESTABILISHED PATIENT [facility] CHARGE DISPOSITION & COMMUNICATION FOLLOW UP 2 MONTHS ELECTRONICALLY SIGNED BY ADONIS PETERSEN ON 09/18/2018 AT 02:22 PM EST DISCLAIMER : THIS IS A VISIT SUMMARY EXTRACTED FROM THE [facility] CHART. IT IS NOT A COPY OF THE [employer] PROGRESS NOTE. MTDD
== END ==
LOC: M PAIN 14:15
PROVIDERS: ATTEND Nurse Practitioner Family
DX: M79.7 Fibromyalgia (principal); M25.552 Pain in left hip; M25.551 Pain in right hip; F32.9 Major depressive disorder, single episode, unspecified; F50.81 Binge eating disorder; Z91.040 Latex allergy status; Z91.041 Radiographic dye allergy status; Z88.8 Allergy status to other drugs, medicaments and biological substances; Z79.899 Other long term (current) drug therapy

== ENCOUNTER 2018-09-30 07:24 | Emergency (ER) | payer OTHER ==
[~2018-09-30] VITALS: Ht 160 cm; Wt 90.0 kg
[~2018-09-30 07:24] MED LIST changes: -ROPI2TAB; +ROPI2TAB PO
[2018-09-30] MEDS ORDERED: TRAM1CAP15 PO (07:32)
[2018-09-30] MEDS ORDERED: CEFD250S26 PO (07:32)
[2018-09-30] MEDS ORDERED: ADDE20CA3 PO (07:32)
[2018-09-30] MEDS ORDERED: BENZ200C70 PO (07:32)
[2018-09-30] MEDS ORDERED: ONDANSETRON 4 MG ORAL DISINTEGRATING TAB (Q0162 PER 1MG) PO ONE (08:00)
[2018-09-30 08:48] LABS: INFLUENZA A AMPLIFICATION NEGATIVE (NEGATIVE); INFLUENZA B AMPLIFICATION NEGATIVE (NEGATIVE)
[2018-09-30] MEDS ORDERED: ONDA4TAB6 PO (09:04)
[2018-09-30 09:23] VITALS: BP 142/98
[2018-09-30] MEDS ORDERED: GUAISYP9 PO (10:07)
== END 2018-09-30 09:24 | disposition home or self-care (01) ==
LOC: M ED 07:24
DX: J06.9 Acute upper respiratory infection, unspecified (principal); R11.0 Nausea; Z20.828 Contact with and (suspected) exposure to other viral communicable diseases; J45.909 Unspecified asthma, uncomplicated; K21.9 Gastro-esophageal reflux disease without esophagitis; Z91.041 Radiographic dye allergy status; Z88.8 Allergy status to other drugs, medicaments and biological substances; Z91.040 Latex allergy status
CPT/HCPCS: 87502; 99283; Q0162

== ENCOUNTER 2018-10-06 13:42 | Emergency (ER) | payer OTHER ==
[~2018-10-06] VITALS: Ht 160 cm; Wt 90.9 kg
[2018-10-06 13:42] VITALS: BP 128/78
[~2018-10-06 13:42] MED LIST changes: +BENZ200C70 PO; +CEFD250S26 PO; +GUAISYP9 PO; +ONDA4TAB6 PO; +TRAM1CAP15 PO
[2018-10-06 14:30] LABS: BASO % 0.6 % (0.0-1.0); EOS # 0.3 10^3/uL (0.0-0.50); HEMATOCRIT 39.8 % (36.0-47.0); HEMOGLOBIN 12.6 g/dl (12.0-15.5); LYMPH # 2.5 10^3/uL (1.5-4.5); MEAN CORPUSCULAR HEMOGLOBIN 26.1 pg (27.0-33.0); MEAN CORPUSCULAR HGB CONC 31.7 g/dl (32.0-36.5); MEAN CORPUSCULAR VOLUME 82.4 fl (80.0-96.0); MONO # 0.3 10^3/uL (0.0-0.8); MONO % 5.2 % (0.0-5.0); NEUTROPHILS # 2.3 10^3/uL (1.8-7.7); PLATELET COUNT, AUTOMATED 232 10^3/uL (150-450); RED BLOOD COUNT 4.83 10^6/uL (4.00-5.40); WHITE BLOOD COUNT 5.4 10^3/uL (4.0-10.0)
[2018-10-06 15:00] LABS: INFLUENZA A AMPLIFICATION POSITIVE (NEGATIVE); INFLUENZA B AMPLIFICATION NEGATIVE (NEGATIVE)
[2018-10-06 15:05] LABS: ALBUMIN 3.8 GM/DL (3.2-5.2); ALT/SGPT 49 U/L (12-78); BILIRUBIN,DIRECT 0.1 MG/DL (0.0-0.2); BILIRUBIN,TOTAL 0.5 MG/DL (0.2-1.0); BLOOD UREA NITROGEN 14 MG/DL (7-18); CALCIUM LEVEL 8.4 MG/DL (8.5-10.1); CARBON DIOXIDE LEVEL 24 MEQ/L (21-32); CHLORIDE LEVEL 106 MEQ/L (98-107); CREATININE FOR GFR 0.86 MG/DL (0.55-1.30); GLOMERULAR FILTRATION RATE > 60.0 (>60); GLUCOSE, FASTING 65 MG/DL (70-100); LIPASE 52 U/L (73-393); POTASSIUM SERUM 3.7 MEQ/L (3.5-5.1); SODIUM LEVEL 139 MEQ/L (136-145); TOTAL PROTEIN 7.5 GM/DL (6.4-8.2)
[2018-10-06] MEDS ORDERED: GUAI1SOL2 PO (16:38)
== END 2018-10-06 16:49 | disposition home or self-care (01) ==
LOC: M ED 13:42
DX: J09.X2 Influenza due to identified novel influenza A virus with other respiratory manifestations (principal); R19.7 Diarrhea, unspecified; Z20.828 Contact with and (suspected) exposure to other viral communicable diseases; I10 Essential (primary) hypertension; M79.7 Fibromyalgia; G25.81 Restless legs syndrome; J45.909 Unspecified asthma, uncomplicated; F41.9 Anxiety disorder, unspecified; F32.9 Major depressive disorder, single episode, unspecified; F43.10 Post-traumatic stress disorder, unspecified; F90.9 Attention-deficit hyperactivity disorder, unspecified type; K58.9 Irritable bowel syndrome, unspecified; Z91.040 Latex allergy status; Z91.041 Radiographic dye allergy status; Z88.8 Allergy status to other drugs, medicaments and biological substances; Z79.899 Other long term (current) drug therapy; Z79.891 Long term (current) use of opiate analgesic

== ENCOUNTER → 2018-10-07 | Outpatient (REF) | payer OTHER ==
[~2018-10-07] MED LIST changes: +DICY20TA11 PO; +GUAI1SOL2 PO
== END ==
LOC: M LAB REF 16:11
PROVIDERS: ATTEND Emergency Medicine
DX: R19.7 Diarrhea, unspecified (principal)

== ENCOUNTER 2018-10-09 16:39 | Emergency (ER) | payer OTHER ==
[~2018-10-09] VITALS: Ht 160 cm; Wt 90.9 kg
[~2018-10-09 16:39] MED LIST changes: -DICY20TA11 PO
[2018-10-09] MEDS ORDERED: CEFD250S26 PO (16:49)
[2018-10-09] MEDS ORDERED: DICYCLOMINE 10 MG CAP PO ONE (17:30)
[2018-10-09] MEDS ORDERED: NS 1,000 ML IV ONE (17:30)
[2018-10-09] MEDS ORDERED: ONDANSETRON 4MG/2ML VIAL (J2405) IV ONE (17:30)
[2018-10-09] MEDS: GASTROGRAFIN SOLUTION 30ML PO SCH ×2 (18:02→18:30)
[2018-10-09 18:06] LABS: BASO % 0.6 % (0.0-1.0); EOS # 0.3 10^3/uL (0.0-0.50); EOS % 5.5 % (0.0-3.0); HEMOGLOBIN 13.1 g/dl (12.0-15.5); LYMPH # 1.7 10^3/uL (1.5-4.5); MEAN CORPUSCULAR VOLUME 81.3 fl (80.0-96.0); MONO # 0.3 10^3/uL (0.0-0.8); MONO % 5.9 % (0.0-5.0); NEUTROPHILS # 2.7 10^3/uL (1.8-7.7); NEUTROPHILS % 53.8 % (36.0-66.0); PLATELET COUNT, AUTOMATED 288 10^3/uL (150-450); RED BLOOD COUNT 5.04 10^6/uL (4.00-5.40); WHITE BLOOD COUNT 4.9 10^3/uL (4.0-10.0)
[2018-10-09 18:10] LABS: URINE PREG TEST NEGATIVE (NEGATIVE)
[2018-10-09 18:33] LABS: ALBUMIN 3.9 GM/DL (3.2-5.2); ALT/SGPT 34 U/L (12-78); BILIRUBIN,TOTAL 0.3 MG/DL (0.2-1.0); BLOOD UREA NITROGEN 11 MG/DL (7-18); CALCIUM LEVEL 8.4 MG/DL (8.5-10.1); CARBON DIOXIDE LEVEL 26 MEQ/L (21-32); CHLORIDE LEVEL 108 MEQ/L (98-107); CREATININE FOR GFR 0.91 MG/DL (0.55-1.30); GLOMERULAR FILTRATION RATE > 60.0 (>60); GLUCOSE, FASTING 83 MG/DL (70-100); LIPASE 68 U/L (73-393); POTASSIUM SERUM 3.7 MEQ/L (3.5-5.1); SODIUM LEVEL 140 MEQ/L (136-145); TOTAL PROTEIN 7.6 GM/DL (6.4-8.2)
--- NOTE | 2018-10-09 20:41 | REPVR ---
EXAM: CT Abdomen and Pelvis Without Contrast EXAM DATE/TIME: 10/09/2018 7:28 PM CLINICAL HISTORY: 38 years old, female; Pain; Abdominal pain; Additional info: Diffuse abd pain, nausea/diarrhea TECHNIQUE: Axial computed tomography images of the abdomen and pelvis without contrast. All CT scans at this facility use at least one of these dose optimization techniques: automated exposure control; mA and/or kV adjustment per patient size (includes targeted exams where dose is matched to clinical indication); or iterative reconstruction. Coronal and sagittal reformatted images were created and reviewed. COMPARISON: CT ABD PELVIS WITH CONTRAST 01/21/2013 4:11 PM FINDINGS: Limitations: Suboptimal examination secondary to lack of IV contrast. Lower thorax: No acute findings. ABDOMEN: Liver: Indeterminate low density lesion measuring 5 mm within the right hepatic lobe (axial image 31) likely tiny cyst. Otherwise unremarkable. Gallbladder and bile ducts: Normal. No calcified stones. No ductal dilation. Pancreas: Unremarkable. No ductal dilation. Spleen: Unremarkable. No splenomegaly. Adrenals: Normal. No mass. Kidneys and ureters: Nonobstructing stone measuring 5 mm within the right kidney lower pole. Unremarkable left kidney. No hydronephrosis. Stomach and bowel: Small gastric this hernia. The stomach, small bowel and colon are otherwise unremarkable. Appendix: No evidence of appendicitis. PELVIS: Bladder: Unremarkable as visualized. Reproductive: Status post bilateral tubal ligation. Otherwise unremarkable uterus and adnexa. ABDOMEN and PELVIS: Intraperitoneal space: Trace fluid within the posterior cul-de-sac, likely physiologic. Bones/joints: No acute fracture. Soft tissues: Unremarkable. Vasculature: Unremarkable. No abdominal aortic aneurysm. Lymph nodes: No enlarged lymph nodes. IMPRESSION: No acute abnormality. Electronically signed by: Yang Caldwell On 10/09/2018 20:40:36 PM
[2018-10-09] MEDS ORDERED: DICY20TA11 PO (20:50)
[2018-10-09 21:14] VITALS: BP 138/78
== END 2018-10-09 21:15 | disposition home or self-care (01) ==
LOC: M ED 16:39
DX: R19.7 Diarrhea, unspecified (principal); R11.0 Nausea; I10 Essential (primary) hypertension; J45.909 Unspecified asthma, uncomplicated; M79.7 Fibromyalgia; K58.9 Irritable bowel syndrome, unspecified; D64.9 Anemia, unspecified; F33.9 Major depressive disorder, recurrent, unspecified; F41.9 Anxiety disorder, unspecified; F43.10 Post-traumatic stress disorder, unspecified; F90.9 Attention-deficit hyperactivity disorder, unspecified type; Z79.899 Other long term (current) drug therapy; Z88.8 Allergy status to other drugs, medicaments and biological substances; Z91.040 Latex allergy status; Z91.041 Radiographic dye allergy status
CPT/HCPCS: 74176; 80053; 81001; 83690; 84703; 85025; 86140; 87086; 96361; 96374; 99284; J2405; Q9963

== ENCOUNTER 2019-01-30 14:08 | Emergency (ER) | payer OTHER ==
[~2019-01-30] VITALS: Ht 160 cm; Wt 90.9 kg
[~2019-01-30 14:08] MED LIST changes: +DICY20TA11 PO
[2019-01-30 14:09] VITALS: BP 178/89
--- NOTE | 2019-01-30 14:52 | REP ---
Clinical: Right ankle injury. Technique: AP, lateral, bilateral oblique views of the right ankle. Findings: No acute fracture dislocation. Skeletal structures, joint spaces, and surrounding soft tissues appear normal. No subcutaneous emphysema or radiodense foreign body. Impression: No acute fracture or dislocation Electronically Signed by Patrick Dick MD 01/30/2019 02:43 P
[2019-01-30] MEDS ORDERED: traMADol 50 MG TAB PO ONE (17:30)
[2019-01-31] MEDS ORDERED: PERC5TAB12 PO (16:39)
== END 2019-01-30 17:51 | disposition home or self-care (01) ==
LOC: M ED 14:08
DX: S93.411A Sprain of calcaneofibular ligament of right ankle, initial encounter (principal); S93.431A Sprain of tibiofibular ligament of right ankle, initial encounter; S93.491A Sprain of other ligament of right ankle, initial encounter; W10.8XXA Fall (on) (from) other stairs and steps, initial encounter; Y92.89 Other specified places as the place of occurrence of the external cause; I10 Essential (primary) hypertension; G25.81 Restless legs syndrome; M79.7 Fibromyalgia; J45.909 Unspecified asthma, uncomplicated; K58.9 Irritable bowel syndrome, unspecified; Z91.041 Radiographic dye allergy status; Z91.040 Latex allergy status; Z88.8 Allergy status to other drugs, medicaments and biological substances; Z79.899 Other long term (current) drug therapy

== ENCOUNTER 2019-01-31 14:22 | Emergency (ER) | payer OTHER ==
[~2019-01-31] VITALS: Ht 160 cm; Wt 90.9 kg
[2019-01-31] MEDS ORDERED: PERC5TAB12 PO (16:39)
[2019-01-31] MEDS ORDERED: PERCOCET 5MG/325MG TAB PO ONE (16:45)
[2019-01-31 16:47] VITALS: BP 138/98
== END 2019-01-31 16:48 | disposition home or self-care (01) ==
LOC: M ED 14:22
DX: S93.401A Sprain of unspecified ligament of right ankle, initial encounter (principal); X50.9XXA Other and unspecified overexertion or strenuous movements or postures, initial encounter; Y92.018 Other place in single-family (private) house as the place of occurrence of the external cause; M79.7 Fibromyalgia; Z79.899 Other long term (current) drug therapy; Z88.8 Allergy status to other drugs, medicaments and biological substances; Z91.040 Latex allergy status; Z91.041 Radiographic dye allergy status

== ENCOUNTER 2019-06-03 17:16 | Emergency (ER) | payer OTHER ==
[~2019-06-03] VITALS: Ht 160 cm; Wt 88.6 kg
[~2019-06-03 17:16] MED LIST changes: +PERC5TAB12 PO
[2019-06-03 17:17] VITALS: BP 134/82
[2019-06-03] MEDS ORDERED: LYRI75CA PO (17:25)
[2019-06-03] MEDS ORDERED: ADDE30TA PO (17:25)
[2019-06-03] MEDS ORDERED: NORCO, ANEXSIA 5/325MG TABLET (HYDROcodone/ACETAMINOPHEN) PO ONE (17:45)
--- NOTE | 2019-06-04 08:33 | REP ---
RIGHT ANKLE, FOUR VIEWS: There is no evidence of an acute fracture, dislocation or intrinsic bone disease. IMPRESSION: No fracture or dislocation. Electronically Signed by Marty Rebollar MD 06/04/2019 12:25 P
== END 2019-06-03 18:24 | disposition home or self-care (01) ==
LOC: M ED 17:16
DX: S93.401A Sprain of unspecified ligament of right ankle, initial encounter (principal); W22.09XA Striking against other stationary object, initial encounter; Y92.009 Unspecified place in unspecified non-institutional (private) residence as the place of occurrence of the external cause; Y93.89 Activity, other specified; Y99.8 Other external cause status; Z91.041 Radiographic dye allergy status; Z88.2 Allergy status to sulfonamides; Z88.8 Allergy status to other drugs, medicaments and biological substances; Z79.899 Other long term (current) drug therapy

== ENCOUNTER 2019-07-24 14:41 | Emergency (ER) | payer OTHER ==
[~2019-07-24] VITALS: Ht 160 cm; Wt 91.7 kg
[~2019-07-24 14:41] MED LIST changes: +ADDE30TA PO; +CLON0.5T2; +CLON0.5T2 PO; -CLON0.5T8; -CLON0.5T8 PO; +LYRI75CA PO
--- NOTE | 2019-07-24 15:39 | REP ---
Bilateral knee series: Four views total. History: Direct anterior trauma. Comparison right knee radiographs are from April 30, 2016. Comparison left knee radiographs are from November 02, 2009. Findings: AP and lateral views of each knee demonstrate normal bones, joints, and soft tissues. There is no evidence of fracture, subluxation, or joint effusion. Impression: Negative AP and lateral radiographs of each knee. Electronically Signed by Nnamdi Collado MD 07/24/2019 03:32 P
[2019-07-24] MEDS ORDERED: NAPR-837 PO (15:46)
[2019-07-24 15:58] VITALS: BP 126/91
== END 2019-07-24 16:18 | disposition home or self-care (01) ==
LOC: M ED 14:41
DX: S80.01XA Contusion of right knee, initial encounter (principal); S80.219A Abrasion, unspecified knee, initial encounter; W01.10XA Fall on same level from slipping, tripping and stumbling with subsequent striking against unspecified object, initial encounter; Y92.099 Unspecified place in other non-institutional residence as the place of occurrence of the external cause; Y93.9 Activity, unspecified; Y99.9 Unspecified external cause status; M79.7 Fibromyalgia; G25.81 Restless legs syndrome; I10 Essential (primary) hypertension; Z87.59 Personal history of other complications of pregnancy, childbirth and the puerperium; J45.909 Unspecified asthma, uncomplicated; K58.9 Irritable bowel syndrome, unspecified; D64.9 Anemia, unspecified; F90.9 Attention-deficit hyperactivity disorder, unspecified type; F41.9 Anxiety disorder, unspecified; F32.9 Major depressive disorder, single episode, unspecified; F43.10 Post-traumatic stress disorder, unspecified; Z79.899 Other long term (current) drug therapy; Z91.040 Latex allergy status; Z88.8 Allergy status to other drugs, medicaments and biological substances

== ENCOUNTER 2019-09-05 15:40 | Emergency (ER) | payer OTHER ==
[~2019-09-05] VITALS: Ht 160 cm; Wt 94.5 kg
[~2019-09-05 15:40] MED LIST changes: +NAPR-837 PO
[2019-09-05] MEDS ORDERED: NS 1,000 ML IV ONE (18:30)
[2019-09-05] MEDS ORDERED: KETOROLAC 30 MG/ML VIAL (J1885) IV ONE (18:30)
[2019-09-05 18:51] LABS: BASO # 0.1 10^3/uL (0.0-0.2); BASO % 0.8 % (0.0-1.0); EOS # 0.1 10^3/uL (0.0-0.5); EOS % 1.5 % (0.0-3.0); HEMATOCRIT 43.7 % (36.0-47.0); HEMOGLOBIN 14.2 g/dl (12.0-15.5); LYMPH # 2.1 10^3/uL (1.5-5.0); MEAN CORPUSCULAR HEMOGLOBIN 28.4 pg (27.0-33.0); MEAN CORPUSCULAR HGB CONC 32.5 g/dl (32.0-36.5); MEAN CORPUSCULAR VOLUME 87.4 fl (80.0-96.0); MONO # 0.3 10^3/uL (0.0-0.8); MONO % 5.1 % (0.0-5.0); NEUTROPHILS # 3.5 10^3/uL (1.5-8.5); NEUTROPHILS % 57.4 % (36.0-66.0); PLATELET COUNT, AUTOMATED 283 10^3/uL (150-450); WHITE BLOOD COUNT 6.1 10^3/uL (4.0-10.0)
[2019-09-05 19:14] LABS: ALBUMIN 4.1 GM/DL (3.2-5.2); ALT/SGPT 76 U/L (12-78); BILIRUBIN,DIRECT < 0.1 MG/DL (0.0-0.2); BILIRUBIN,TOTAL 0.3 MG/DL (0.2-1.0); LIPASE 90 U/L (73-393); TOTAL PROTEIN 7.8 GM/DL (6.4-8.2)
--- NOTE | 2019-09-05 19:58 | REPVR ---
PROCEDURE INFORMATION: Exam: US Pelvis Complete, Transabdominal Exam date and time: 09/05/2019 6:54 PM Age: 39 years old Clinical indication: Pelvic pain; Additional info: Pain since btl, llq, L flank TECHNIQUE: Imaging protocol: Real-time transabdominal pelvic ultrasound with image documentation. Complete exam. COMPARISON: CT ABD/PEL W/PO CONTRAST ONLY 10/09/2018 7:21 PM FINDINGS: Uterus/cervix: Uterus measures 8.7 x 4.6 by 5.9 cm. The endometrial bilayer is 7.5 mm in width. The echotexture of the uterus is heterogeneous without focal masses. Right adnexa: Right ovary measures 3.0 by 3.0 x 1.6 cm. Blood flow is detected. Left adnexa: Left ovary contains follicles and measures 2.5 by 2.7 x 1.8 cm. Blood flow is detected. Free fluid: Trace. Bladder: Urinary bladder is decompressed and unremarkable. IMPRESSION: Normal pelvic ultrasound. Electronically signed by: Humera Carlos On 09/05/2019 19:58:34 PM
[2019-09-05] MEDS ORDERED: KETO10TAB PO (20:36)
[2019-09-05 20:51] VITALS: BP 130/92
[2019-09-05] MEDS ORDERED: KETOROLAC TROMETHAMINE 10 MG TAB PO ONE (21:00)
== END 2019-09-05 20:53 | disposition home or self-care (01) ==
LOC: M ED 15:40
DX: R10.2 Pelvic and perineal pain (principal); R10.9 Unspecified abdominal pain; R10.30 Lower abdominal pain, unspecified; K58.9 Irritable bowel syndrome, unspecified; M79.7 Fibromyalgia; G25.81 Restless legs syndrome; Z87.59 Personal history of other complications of pregnancy, childbirth and the puerperium; Z98.51 Tubal ligation status; Z79.899 Other long term (current) drug therapy; Z91.040 Latex allergy status; Z91.041 Radiographic dye allergy status; Z88.8 Allergy status to other drugs, medicaments and biological substances
CPT/HCPCS: 76830; 76856; 80047; 80076; 83690; 85025; 93976; 96361; 96374; 99284; J1885

== ENCOUNTER → 2020-03-22 | Emergency (ER) | payer OTHER ==
[~2020-03-22] MED LIST changes: +IBUPROFEN 600MG TAB As Ordered ONE; +IBUPROFEN 600MG TAB ONE; +KETO10TAB PO; +PREG100C; -ROPI2TAB PO; +ROPI2TAB3 PO; +cefTRIAXone SOD 1GM VIAL (J0696 PER 250MG) As Ordered ONE; +cefTRIAXone SOD 1GM VIAL (J0696 PER 250MG) ONE
[2020-05-06 13:13] LABS: BASO % 0.2 % (0.0-1.0); HEMATOCRIT 34.3 % (36.0-47.0); HEMOGLOBIN 11.2 g/dl (12.0-15.5); LYMPH # 0.3 10^3/uL (1.5-5.0); LYMPH % 2.5 % (24.0-44.0); MEAN CORPUSCULAR HEMOGLOBIN 28.2 pg (27.0-33.0); MEAN CORPUSCULAR HGB CONC 32.7 g/dl (32.0-36.5); MEAN CORPUSCULAR VOLUME 86.4 fl (80.0-96.0); MONO # 0.6 10^3/uL (0.0-0.8); MONO % 6.1 % (0.0-5.0); NEUTROPHILS % 90.4 % (36.0-66.0); PLATELET COUNT, AUTOMATED 143 10^3/uL (150-450); RED BLOOD COUNT 3.97 10^6/uL (4.00-5.40)
[2020-05-06 14:01] LABS: APPEARANCE, URINE MANUAL CLOUDY (CLEAR); BACTERIA, URINE LARGE AMOUNT; BILIRUBIN, URINE MANUAL NEGATIVE (NEGATIVE); BLOOD URINE MANUAL POSITIVE (NEGATIVE); COLOR, URINE MANUAL AMBER (YELLOW); GLUCOSE, URINE (UA) MANUAL NEGATIVE (NEGATIVE); HYALINE CAST, URINE NONE SEEN /lpf (0-1); KETONE, URINE MANUAL NEGATIVE (NEGATIVE); LEUKOCYTE ESTERASE, URINE MAN POSITIVE (NEGATIVE); NITRITE, URINE MANUAL POSITIVE (NEGATIVE); PH,URINE MAN 5.5 UNITS (5.0 - 7.0); PROTEIN, URINE MANUAL 2+ mg/dL (NEGATIVE); SPECIFIC GRAVITY,URINE MANUAL 1.015 (1.002-1.035); SQUAMOUS EPITHELIAL CELL URINE SMALL AMOUNT /hpf (SMALL AMT); UROBILINOGEN, URINE MANUAL 4 MG mg/dl (NORMAL); WBC, URINE TNTC /hpf (0-3)
== END | disposition home or self-care (01) ==
LOC: M ED 23:48
DX: N10 Acute pyelonephritis (principal); M79.7 Fibromyalgia; G25.81 Restless legs syndrome; F33.9 Major depressive disorder, recurrent, unspecified; F41.9 Anxiety disorder, unspecified; Z88.1 Allergy status to other antibiotic agents; Z79.899 Other long term (current) drug therapy
CPT/HCPCS: 71046; 80048; 80076; 81000; 83605; 85025; 87040; 87088; 87186; 87486; 87581; 87633; 87798; 96360; 96361; 99284; J0696

== ENCOUNTER 2020-03-24 08:19 | Inpatient (IN) | payer OTHER ==
[~2020-03-24 08:19] MED LIST changes: -IBUPROFEN 600MG TAB As Ordered ONE; -IBUPROFEN 600MG TAB ONE; -PREG100C; -cefTRIAXone SOD 1GM VIAL (J0696 PER 250MG) As Ordered ONE; -cefTRIAXone SOD 1GM VIAL (J0696 PER 250MG) ONE
[2020-03-24] MEDS ORDERED: ACETAMINOPHEN 500 MG TAB As Ordered ONE ×2 (08:54→17:57)
[2020-03-24] MEDS ORDERED: ONDANSETRON 4MG/2ML VIAL As Ordered ONE ×3 (08:54→20:55)
[2020-03-24] MEDS ORDERED: ONDANSETRON 4MG/2ML VIAL ONE ×3 (09:00→20:30)
[2020-03-24] MEDS ORDERED: cefTRIAXone SOD 1GM VIAL (J0696 PER 250MG) ONE (09:00)
[2020-03-24] MEDS ORDERED: LevoFLOXacin 750MG/150ML IV BAG (J1956 PER 250MG) ONE (09:00)
[2020-03-24] MEDS ORDERED: ACETAMINOPHEN 500 MG TAB ONE ×2 (09:00→16:49)
[2020-03-24] MEDS ORDERED: KETOROLAC 30 MG/ML 1ML VIAL ONE (09:00)
[2020-03-24] MEDS ORDERED: LevoFLOXacin 750MG/150ML IV BAG (J1956 PER 250MG) As Ordered ONE (09:08)
[2020-03-24] MEDS ORDERED: cefTRIAXone SOD 1GM VIAL (J0696 PER 250MG) As Ordered ONE (10:31)
[2020-03-24] MEDS ORDERED: ISOVUE-370 76% 100ML VIAL As Ordered ONE (11:46)
[2020-03-24] MEDS ORDERED: KETOROLAC 30 MG/ML 1ML VIAL As Ordered ONE (12:07)
[2020-03-24] MEDS ORDERED: MORPHINE 2 MG/ML 1ML VIAL (J2270) As Ordered ONE (16:49)
[2020-03-24] MEDS ORDERED: MORPHINE 2 MG/ML 1ML VIAL (J2270) ONE (16:49)
[2020-03-24] MEDS ORDERED: ENOXAPARIN 40MG/0.4ML SYRINGE (J1650 PER 10MG) ONE (16:49)
[2020-03-24] MEDS ORDERED: ENOXAPARIN 40MG/0.4ML SYRINGE (J1650 PER 10MG) As Ordered ONE (16:55)
[2020-03-24] MEDS ORDERED: clonazePAM 0.5 MG TAB ONE (20:30)
[2020-03-24] MEDS ORDERED: PREGABALIN 100 MG CAP (LYRICA) ONE (20:30)
[2020-03-24] MEDS ORDERED: PREGABALIN 100 MG CAP (LYRICA) As Ordered ONE (20:37)
[2020-03-24] MEDS ORDERED: clonazePAM 0.5 MG TAB As Ordered ONE (20:38)
[2020-03-24] MEDS ORDERED: PANTOPRAZOLE 40MG VIAL (C9113 PER 1) ONE (21:00)
[2020-03-25] MEDS ORDERED: KETOROLAC 30 MG/ML 1ML VIAL As Ordered ONE ×2 (02:59→12:45)
[2020-03-25] MEDS ORDERED: KETOROLAC 30 MG/ML 1ML VIAL ONE ×2 (03:00→12:45)
[2020-03-25] MEDS ORDERED: ACETAMINOPHEN 500 MG TAB ONE (03:00)
[2020-03-25] MEDS ORDERED: ACETAMINOPHEN 500 MG TAB As Ordered ONE ×2 (03:07→20:34)
[2020-03-25] MEDS ORDERED: ADDERALL 5 MG TAB ONE (06:00)
[2020-03-25] MEDS ORDERED: ADDERALL 5 MG TAB As Ordered ONE (06:00)
[2020-03-25] MEDS ORDERED: PREGABALIN 100 MG CAP (LYRICA) As Ordered ONE ×3 (08:57→20:35)
[2020-03-25] MEDS ORDERED: cefTRIAXone SOD 2 GM VIAL (J0696 PER 250MG) ONE (08:57)
[2020-03-25] MEDS ORDERED: PREGABALIN 100 MG CAP (LYRICA) ONE ×3 (08:57→20:30)
[2020-03-25] MEDS ORDERED: cefTRIAXone SOD 2 GM VIAL (J0696 PER 250MG) As Ordered ONE (10:52)
[2020-03-25] MEDS ORDERED: rOPINIRole 0.25 MG TAB(REQUIP) ONE (13:00)
[2020-03-25] MEDS ORDERED: ENOXAPARIN 40MG/0.4ML SYRINGE (J1650 PER 10MG) ONE (16:00)
[2020-03-25] MEDS ORDERED: ENOXAPARIN 40MG/0.4ML SYRINGE (J1650 PER 10MG) As Ordered ONE (16:04)
[2020-03-25] MEDS ORDERED: PANTOPRAZOLE 40MG VIAL (C9113 PER 1) ONE (20:30)
[2020-03-25] MEDS ORDERED: clonazePAM 0.5 MG TAB ONE (20:30)
[2020-03-25] MEDS ORDERED: clonazePAM 0.5 MG TAB As Ordered ONE (20:35)
[2020-03-25] MEDS ORDERED: PANTOPRAZOLE 40MG VIAL (C9113 PER 1) As Ordered ONE (21:20)
[2020-03-26] MEDS ORDERED: PREGABALIN 100 MG CAP (LYRICA) ONE (05:00)
[2020-03-26] MEDS ORDERED: KETOROLAC 30 MG/ML 1ML VIAL ONE (05:00)
[2020-03-26] MEDS ORDERED: ADDERALL 5 MG TAB ONE (05:00)
[2020-03-26] MEDS ORDERED: cefTRIAXone SOD 2 GM VIAL (J0696 PER 250MG) ONE (05:00)
[2020-03-26] MEDS ORDERED: KETOROLAC 30 MG/ML 1ML VIAL As Ordered ONE (05:01)
[2020-03-26] MEDS ORDERED: ADDERALL 5 MG TAB As Ordered ONE (05:14)
[2020-03-26] MEDS ORDERED: PREGABALIN 100 MG CAP (LYRICA) As Ordered ONE (08:25)
[2020-03-26] MEDS ORDERED: cefTRIAXone SOD 2 GM VIAL (J0696 PER 250MG) As Ordered ONE (10:24)
[2020-03-27] MEDS ORDERED: PREG100C (22:16)
[2020-05-06 10:25] LABS: APPEARANCE, URINE MANUAL CLOUDY (CLEAR); BILIRUBIN, URINE MANUAL NEGATIVE (NEGATIVE); BLOOD URINE MANUAL POSITIVE (NEGATIVE); COLOR, URINE MANUAL YELLOW (YELLOW); GLUCOSE, URINE (UA) MANUAL NEGATIVE (NEGATIVE); KETONE, URINE MANUAL 3+ mg/dL (NEGATIVE); LEUKOCYTE ESTERASE, URINE MAN POSITIVE (NEGATIVE); NITRITE, URINE MANUAL NEGATIVE (NEGATIVE); PH,URINE MAN 7.5 UNITS (5.0 - 7.0); PROTEIN, URINE MANUAL 3+ mg/dL (NEGATIVE); SPECIFIC GRAVITY,URINE MANUAL 1.018 (1.002-1.035); UROBILINOGEN, URINE MANUAL 4 MG mg/dl (NORMAL); WBC, URINE 40-50 /hpf (0-3)
[2020-05-06 10:26] LABS: AMORPHOUS SEDIMENT, URINE SMALL AMOUNT (NEGATIVE); BACTERIA, URINE MOD AMOUNT; MUCUS, URINE SMALL AMOUNT (NEGATIVE); RBC, URINE 20-30 /hpf (0-3); SQUAMOUS EPITHELIAL CELL URINE LARGE AMOUNT /hpf (SMALL AMT)
[2020-05-06 22:16] LABS: BASO % 0.2 % (0.0-1.0); HEMATOCRIT 37.3 % (36.0-47.0); HEMOGLOBIN 12.2 g/dl (12.0-15.5); LYMPH # 0.7 10^3/uL (1.5-5.0); LYMPH % 6.1 % (24.0-44.0); MEAN CORPUSCULAR HEMOGLOBIN 28.2 pg (27.0-33.0); MEAN CORPUSCULAR HGB CONC 32.7 g/dl (32.0-36.5); MEAN CORPUSCULAR VOLUME 86.3 fl (80.0-96.0); MONO # 0.8 10^3/uL (0.0-0.8); MONO % 7.3 % (0.0-5.0); NEUTROPHILS # 9.3 10^3/uL (1.5-8.5); NEUTROPHILS % 85.9 % (36.0-66.0); PLATELET COUNT, AUTOMATED 169 10^3/uL (150-450); RED BLOOD COUNT 4.32 10^6/uL (4.00-5.40); WHITE BLOOD COUNT 10.8 10^3/uL (4.0-10.0)
[2020-05-09 11:49] LABS: BASO % 0.4 % (0.0-1.0); EOS % 0.4 % (0.0-3.0); HEMATOCRIT 33.4 % (36.0-47.0); HEMOGLOBIN 10.6 g/dl (12.0-15.5); LYMPH # 0.8 10^3/uL (1.5-5.0); LYMPH % 15.9 % (24.0-44.0); MEAN CORPUSCULAR HEMOGLOBIN 27.7 pg (27.0-33.0); MEAN CORPUSCULAR HGB CONC 31.7 g/dl (32.0-36.5); MEAN CORPUSCULAR VOLUME 87.4 fl (80.0-96.0); MONO # 0.5 10^3/uL (0.0-0.8); MONO % 8.9 % (0.0-5.0); NEUTROPHILS # 3.8 10^3/uL (1.5-8.5); NEUTROPHILS % 73.2 % (36.0-66.0); PLATELET COUNT, AUTOMATED 117 10^3/uL (150-450); RED BLOOD COUNT 3.82 10^6/uL (4.00-5.40); WHITE BLOOD COUNT 5.2 10^3/uL (4.0-10.0)
[2020-06-09 11:27] LABS: ALBUMIN 2.8 GM/DL (3.2-5.2); ALT/SGPT 50 U/L (12-78); BILIRUBIN,DIRECT 0.4 MG/DL (0.0-0.2); BILIRUBIN,TOTAL 0.7 MG/DL (0.2-1.0); BLOOD UREA NITROGEN 10 MG/DL (7-18); CALCIUM LEVEL 8.6 MG/DL (8.5-10.1); CARBON DIOXIDE LEVEL 28 MEQ/L (21-32); CHLORIDE LEVEL 103 MEQ/L (98-107); CREATININE FOR GFR 0.98 MG/DL (0.55-1.30); GLOMERULAR FILTRATION RATE > 60.0 (>58); GLUCOSE, FASTING 121 MG/DL (70-100); LIPASE 36 U/L (73-393); POTASSIUM SERUM 3.4 MEQ/L (3.5-5.1); SODIUM LEVEL 138 MEQ/L (136-145); TOTAL PROTEIN 6.7 GM/DL (6.4-8.2)
[2020-06-16 13:02] LABS: BLOOD UREA NITROGEN 8 MG/DL (7-18); CALCIUM LEVEL 8.4 MG/DL (8.5-10.1); CARBON DIOXIDE LEVEL 28 MEQ/L (21-32); CHLORIDE LEVEL 108 MEQ/L (98-107); CREATININE FOR GFR 0.92 MG/DL (0.55-1.30); GLOMERULAR FILTRATION RATE > 60.0 (>58); GLUCOSE, FASTING 116 MG/DL (70-100); POTASSIUM SERUM 3.6 MEQ/L (3.5-5.1); SODIUM LEVEL 140 MEQ/L (136-145)
== END 2020-03-26 13:00 | disposition home or self-care (01) | DRG 690 ==
LOC: M ED 08:19 → M PED 14:30
PROVIDERS: ADMIT Internal Medicine Nephrology; ATTEND Internal Medicine Nephrology
DX: N10 Acute pyelonephritis (principal); R78.81 Bacteremia; M79.7 Fibromyalgia; G25.81 Restless legs syndrome; F41.9 Anxiety disorder, unspecified; F90.9 Attention-deficit hyperactivity disorder, unspecified type; B96.29 Other Escherichia coli [E. coli] as the cause of diseases classified elsewhere; Z79.899 Other long term (current) drug therapy

== ENCOUNTER 2020-03-27 22:08 | Emergency (ER) | payer OTHER ==
[~2020-03-27] VITALS: Ht 160 cm; Wt 94.5 kg
[2020-03-27 22:09] VITALS: BP 145/86
[2020-03-27] MEDS ORDERED: PREG100C (22:16)
== END 2020-03-28 00:32 | disposition left against medical advice (07) ==
LOC: M ED 22:08
DX: Z53.21 Procedure and treatment not carried out due to patient leaving prior to being seen by health care provider (principal)

== ENCOUNTER 2021-01-08 12:48 | Emergency (ER) | payer OTHER ==
[~2021-01-08] VITALS: Ht 160 cm; Wt 75.0 kg
[~2021-01-08 12:48] MED LIST changes: +LABE100T4 PO; -LABE10TAB PO; +PREG100C
[2021-01-08 14:17] LABS: BASO # 0.1 10^3/uL (0.0-0.2); BASO % 0.7 % (0.0-1.0); EOS % 0.6 % (0.0-3.0); HEMATOCRIT 40.2 % (36.0-47.0); HEMOGLOBIN 13.2 g/dl (12.0-15.5); LYMPH # 2.5 10^3/uL (1.5-5.0); LYMPH % 36.9 % (24.0-44.0); MEAN CORPUSCULAR HEMOGLOBIN 29.5 pg (27.0-33.0); MEAN CORPUSCULAR HGB CONC 32.8 g/dl (32.0-36.5); MEAN CORPUSCULAR VOLUME 89.7 fl (80.0-96.0); MONO # 0.5 10^3/uL (0.0-0.8); MONO % 7.9 % (2.0-8.0); NEUTROPHILS # 3.6 10^3/uL (1.5-8.5); NEUTROPHILS % 53.6 % (36.0-66.0); PLATELET COUNT, AUTOMATED 237 10^3/uL (150-450); RED BLOOD COUNT 4.48 10^6/uL (4.00-5.40); WHITE BLOOD COUNT 6.7 10^3/uL (4.0-10.0)
[2021-01-08] MEDS ORDERED: NS 1,000 ML IV ONE (14:20)
[2021-01-08 14:34] LABS: ALBUMIN 4.1 GM/DL (3.2-5.2); ALT/SGPT 22 U/L (12-78); BILIRUBIN,DIRECT 0.2 MG/DL (0.0-0.2); BILIRUBIN,TOTAL 0.9 MG/DL (0.2-1.0); LIPASE 58 U/L (73-393); TOTAL PROTEIN 7.6 GM/DL (6.4-8.2)
[2021-01-08 14:49] LABS: CK-MB VALUE MASS 1.5 NG/ML (<3.6); CPK CREATINE PHOSPHOKINASE 16 U/L (26-192); MB/CK RELATIVE INDEX 9.38 (< OR =4); TROPONIN I < 0.02 NG/ML (< 0.10)
--- NOTE | 2021-01-08 14:53 | REP ---
INDICATION: L flank pain, r/o kidney stones COMPARISON: 03/24/2020 TECHNIQUE: Axial noncontrast images from the lung bases to the pubic symphysis with coronal and sagittal reformations. This CT examination was performed using the following dose reduction techniques: Automated exposure control, adjustment of mA and/or kv according to the patient's size, and use of iterative reconstruction technique. FINDINGS: Lung bases are clear. Visualized heart and pericardium normal. Liver, spleen, pancreas, gallbladder, bilateral adrenal glands and kidneys are normal. No perinephric stranding, hydroureteronephrosis, intrarenal or obvious obstructing ureteral calculi are identified. However, there is a 6 mm calculus in the right hemipelvis which represents a relatively new finding and appears to be in the path of the distal right ureter (image 124) and while there is no right-sided symptoms, this may represent a nonobstructing distal right ureteral calculus. The enteric system is unremarkable and without obstruction or acute inflammatory process. Normal terminal ileum and appendix identified in the right lower quadrant. Pelvis demonstrates normal bladder and age-appropriate uterus/adnexa. No ascites. No free air. No adenopathy. No focal inflammatory stranding. Abdominal aorta without aneurysm. Musculoskeletal structures are intact and without acute osseous abnormality. IMPRESSION: 1. The kidneys are relatively normal and without perinephric stranding, hydronephrosis, or definite nephroureterolithiasis. 2. A nonobstructing 6 mm calculus in the distal right ureter cannot definitively be excluded. 3. No acute abdominopelvic pathology appreciated. No ascites. No free air. No focal inflammatory stranding. No adenopathy. <Electronically signed by Patrick Dick > 01/08/21 1160
[2021-01-08] MEDS ORDERED: KETOROLAC 30 MG/ML 1ML VIAL IV ONE (14:55)
[2021-01-08] MEDS ORDERED: diphenhydrAMINE 50MG/ML VIAL (J1200) IV ONE (15:35)
[2021-01-08] MEDS ORDERED: ACETAMINOPHEN 500 MG TAB PO ONE (15:35)
[2021-01-08] MEDS ORDERED: ONDANSETRON 4MG/2ML VIAL IV ONE (15:50)
[2021-01-08 15:51] VITALS: BP 135/85
[2021-01-08] MEDS ORDERED: ISOVUE-370 76% 100ML VIAL As Ordered ONE (16:05)
--- NOTE | 2021-01-08 16:35 | REP ---
INDICATION: CT urogram please. COMPARISON: None TECHNIQUE: Axial contrast-enhanced images from the lung bases to the pubic symphysis using 100 cc Isovue 370 intravenous contrast material. Delayed images of the abdomen and pelvis obtained. This CT examination was performed using the following dose reduction techniques: Automated exposure control, adjustment of mA and/or kv according to the patient's size, and the use of iterative reconstruction technique. FINDINGS: The kidneys demonstrate relatively symmetric enhancement and excretion into the proximal collecting system. There is no evidence for perinephric stranding or hydronephrosis. The ureters are are however incompletely opacified and the previously noted calcification in the right hemipelvis cannot be definitively identified as phlebolith or nonobstructing ureteral calculus. Liver demonstrates few subcentimeter hypodensities compatible with cysts. Spleen, pancreas, gallbladder, and bilateral adrenal glands are normal. The enteric system is unremarkable. Further evaluation of the pelvis demonstrates normal uterus/adnexa. No ascites. No free air. No adenopathy. Abdominal aorta without aneurysm or dissection. IMPRESSION: 1. The right ureter is incompletely opacified. Previously identified 6 mm calculus in the right hemipelvis cannot be differentiated between phlebolith or nonobstructing ureteral calculus based on current examination. 2. The kidneys themselves appear symmetric and demonstrate symmetric enhancement patterns and excretion into the collecting system. 3. No obvious acute process appreciated. <Electronically signed by Patrick Dick > 01/08/21 [id number]
[2021-01-08] MEDS ORDERED: TAMSULOSIN 0.4 MG CAP PO ONE (17:15)
[2021-01-08] MEDS ORDERED: NITROFURANTOIN (MACROBID) 100 MG CAP PO ONE (17:15)
[2021-01-08] MEDS ORDERED: MACR100C43 PO (17:19)
[2021-01-08] MEDS ORDERED: HYDR-3713 PO (17:19)
[2021-01-08] MEDS ORDERED: FLOM0.4C39 PO (17:19)
== END 2021-01-08 17:33 | disposition home or self-care (01) ==
LOC: M ED 12:48
DX: N39.0 Urinary tract infection, site not specified (principal); N20.1 Calculus of ureter; K21.9 Gastro-esophageal reflux disease without esophagitis; K58.9 Irritable bowel syndrome, unspecified; D64.9 Anemia, unspecified; F41.9 Anxiety disorder, unspecified; F32.9 Major depressive disorder, single episode, unspecified; F43.10 Post-traumatic stress disorder, unspecified; F90.9 Attention-deficit hyperactivity disorder, unspecified type; M79.7 Fibromyalgia; G25.81 Restless legs syndrome; Z87.448 Personal history of other diseases of urinary system; F12.10 Cannabis abuse, uncomplicated; Z79.899 Other long term (current) drug therapy; Z91.041 Radiographic dye allergy status; Z91.040 Latex allergy status; Z88.8 Allergy status to other drugs, medicaments and biological substances
CPT/HCPCS: 74176; 74177; 80047; 80076; 81001; 82550; 82553; 83690; 84484; 84702; 85025; 87086; 96361; 96375; 99284; J1885; J2405; Q9967

== ENCOUNTER 2021-01-25 22:16 | Emergency (ER) | payer OTHER ==
[~2021-01-25] VITALS: Ht 160 cm; Wt 78.9 kg
[~2021-01-25 22:16] MED LIST changes: +FLOM0.4C39 PO; +HYDR-3713 PO; +MACR100C43 PO
[2021-01-26 02:14] LABS: BASO # 0.1 10^3/uL (0.0-0.2); BASO % 0.7 % (0.0-1.0); EOS # 0.2 10^3/uL (0.0-0.5); HEMATOCRIT 43.3 % (36.0-47.0); HEMOGLOBIN 13.9 g/dl (12.0-15.5); LYMPH # 2.5 10^3/uL (1.5-5.0); LYMPH % 32.2 % (24.0-44.0); MEAN CORPUSCULAR HEMOGLOBIN 29.3 pg (27.0-33.0); MEAN CORPUSCULAR HGB CONC 32.1 g/dl (32.0-36.5); MEAN CORPUSCULAR VOLUME 91.4 fl (80.0-96.0); MONO # 0.3 10^3/uL (0.0-0.8); MONO % 4.5 % (2.0-8.0); NEUTROPHILS # 4.6 10^3/uL (1.5-8.5); NEUTROPHILS % 60.3 % (36.0-66.0); PLATELET COUNT, AUTOMATED 221 10^3/uL (150-450); RED BLOOD COUNT 4.74 10^6/uL (4.00-5.40); WHITE BLOOD COUNT 7.6 10^3/uL (4.0-10.0)
[2021-01-26 02:47] LABS: ALBUMIN 3.8 GM/DL (3.2-5.2); ALT/SGPT 28 U/L (12-78); BILIRUBIN,DIRECT 0.1 MG/DL (0.0-0.2); BILIRUBIN,TOTAL 0.4 MG/DL (0.2-1.0); BLOOD UREA NITROGEN 13 MG/DL (7-18); CALCIUM LEVEL 9.7 MG/DL (8.5-10.1); CARBON DIOXIDE LEVEL 30 MEQ/L (21-32); CHLORIDE LEVEL 108 MEQ/L (98-107); CREATININE FOR GFR 0.91 MG/DL (0.55-1.30); GLOMERULAR FILTRATION RATE > 60.0 (>58); GLUCOSE, FASTING 83 MG/DL (70-100); LIPASE 98 U/L (73-393); POTASSIUM SERUM 4.1 MEQ/L (3.5-5.1); SODIUM LEVEL 141 MEQ/L (136-145); TOTAL PROTEIN 7.3 GM/DL (6.4-8.2)
[2021-01-26 04:00] VITALS: BP 131/93
== END 2021-01-26 08:15 | disposition left against medical advice (07) ==
LOC: M ED 22:16
DX: Z53.21 Procedure and treatment not carried out due to patient leaving prior to being seen by health care provider (principal)

== ENCOUNTER → 2021-02-19 | Outpatient (CLI) | payer OTHER ==
[~2021-02-19] MED LIST changes: +CLON1TAB8; +OXYC1TAB23 PO
== END ==
LOC: M LABSMTC 11:18
PROVIDERS: ATTEND Anesthesiology
DX: Z01.812 Encounter for preprocedural laboratory examination (principal); Z20.822 Contact with and (suspected) exposure to COVID-19

== ENCOUNTER → 2021-02-19 | Outpatient (CLI) | payer OTHER ==
[2021-02-19 15:35] LABS: APPEARANCE, URINE CLEAR (CLEAR); BACTERIA, URINE AUTO NEGATIVE (NEGATIVE); BILIRUBIN, URINE AUTO NEGATIVE (NEGATIVE); BLOOD, URINE BLOOD NEGATIVE (NEGATIVE); COLOR, URINE YELLOW (YELLOW); GLUCOSE, URINE (UA) AUTO NEGATIVE (NEGATIVE); KETONE, URINE AUTO NEGATIVE (NEGATIVE); LEUKOCYTE ESTERASE, URINE AUTO NEGATIVE (NEGATIVE); NITRITE, URINE AUTO NEGATIVE (NEGATIVE); PROTEIN, URINE AUTO NEGATIVE (NEGATIVE); RBC, URINE AUTO 0 /HPF (0-3); SPECIFIC GRAVITY URINE AUTO 1.009 (1.002-1.035); SQUAMOUS EPITHELIAL CELL UR AU 1 /HPF (0-6); UROBILINOGEN, URINE AUTO 0.2 mg/dL (0.0-2.0); WBC, URINE AUTO 1 /HPF (0-3)
[2021-02-19 15:39] LABS: HEMATOCRIT 38.5 % (36.0-47.0); HEMOGLOBIN 12.3 g/dl (12.0-15.5); MEAN CORPUSCULAR HEMOGLOBIN 29.6 pg (27.0-33.0); MEAN CORPUSCULAR HGB CONC 31.9 g/dl (32.0-36.5); MEAN CORPUSCULAR VOLUME 92.5 fl (80.0-96.0); PLATELET COUNT, AUTOMATED 189 10^3/uL (150-450); RED BLOOD COUNT 4.16 10^6/uL (4.00-5.40)
[2021-02-19 15:51] LABS: INR 1.01; PROTHROMBIN TIME 13.5 SECONDS (12.5-14.3)
[2021-02-19 15:52] LABS: PARTIAL THROMBOPLASTIN TIME 30.5 SECONDS (24.2-38.5)
[2021-02-19 16:07] LABS: BLOOD UREA NITROGEN 10 MG/DL (7-18); CALCIUM LEVEL 8.7 MG/DL (8.5-10.1); CARBON DIOXIDE LEVEL 30 MEQ/L (21-32); CHLORIDE LEVEL 108 MEQ/L (98-107); CREATININE FOR GFR 0.87 MG/DL (0.55-1.30); GLOMERULAR FILTRATION RATE > 60.0 (>58); GLUCOSE, FASTING 65 MG/DL (70-100); HCG, SERUM QUANTITATIVE < 1.0 MIU/ML; POTASSIUM SERUM 4.4 MEQ/L (3.5-5.1); SODIUM LEVEL 142 MEQ/L (136-145)
== END ==
LOC: M PLALAB 13:46
PROVIDERS: ATTEND Nurse Practitioner Women's Health
DX: N20.1 Calculus of ureter (principal); Z01.818 Encounter for other preprocedural examination
CPT/HCPCS: 36415; 80048; 81001; 84702; 85027; 85610; 85730; 87086; U0003

== ENCOUNTER 2021-02-24 09:43 | Day surgery (SDC) | payer OTHER ==
[~2021-02-24] VITALS: Ht 160 cm; Wt 76.6 kg
[~2021-02-24 09:43] MED LIST changes: +LIDOCAINE 2% 100MG/5ML SDV (FOR ANES.) As Ordered ONE; +LR 1,000 ML IV ONE; +MIDAZOLAM INJ 2MG/2ML VIAL (J2250 PER 1MG) As Ordered ONE; -OXYC1TAB23 PO; +ceFAZolin SOD 2 GM in IV 1 EA IV ONE; +dexameTHASONE 4 MG/ML 1ML VIAL (J1100 PER 1MG) As Ordered ONE; +fentaNYL 100 MCG/2 ML INJECTION (J3010) As Ordered ONE; +propofoL 200 MG/20 ML VIAL As Ordered ONE
[2021-02-24] MEDS ORDERED: ACETAMINOPHEN 1000MG 100ML IV BTL (OFIRMEV) (J0131 PER 10MG) As Ordered ONE (09:58)
[2021-02-24] MEDS ORDERED: OXYC1TAB23 PO (10:13)
[2021-02-24] MEDS ORDERED: CONRAY-60 60% 50ML VIAL (Q9961) As Ordered ONE (10:14)
[2021-02-24] MEDS ORDERED: fentaNYL 100 MCG/2 ML INJECTION (J3010) As Ordered ONE (10:56)
[2021-02-24] MEDS ORDERED: ONDANSETRON 4MG/2ML VIAL As Ordered ONE (10:56)
[2021-02-24] MEDS ORDERED: KETOROLAC 60MG 2ML VIAL As Ordered ONE (11:00)
[2021-02-24] MEDS ORDERED: propofoL 200 MG/20 ML VIAL As Ordered ONE (11:02)
[2021-02-24] MEDS ORDERED: ePHEDrine SULFATE 25 MG/5 ML(5MG/ML) SYRINGE As Ordered ONE (11:05)
--- NOTE | 2021-02-24 11:24 | REP ---
INDICATION: RIGHT STENT PLACEMENT. COMPARISON: CT 01/08/2021. TECHNIQUE: Two AP views abdomen and pelvis using a C-arm. FINDINGS: The right pelvocaliceal system and ureter are partially opacified with contrast. Small amount of contrast is seen in a collapsed urinary bladder which contains an inflated balloon. A metallic clip is seen overlying the right pelvis. IMPRESSION: 7 seconds of fluoroscopy time was utilized. <Electronically signed by Marty Rebollar > 02/24/21 2522
[2021-02-24] MEDS ORDERED: oxyCODONE 5MG TAB PO PRN (11:35)
[2021-02-24] MEDS ORDERED: fentaNYL 100 MCG/2 ML INJECTION (J3010) IV PRN (11:35)
[2021-02-24] MEDS ORDERED: ONDANSETRON 4MG/2ML VIAL IV PRN (11:35)
[2021-02-24] MEDS ORDERED: LR 1,000 ML IV SCH (11:35)
[2021-02-24] MEDS ORDERED: PERCOCET 5MG/325MG TAB PO PRN (11:40)
[2021-02-24 12:40] VITALS: BP 123/68
--- NOTE | 2021-02-24 14:36 | RO ---
OPERATIVE NOTE DATE OF OPERATION: 02/24/2021 PRE-OPERATIVE DIAGNOSIS: Right ureteral stone. POST-OPERATIVE DIAGNOSIS: Right ureteral stone. PROCEDURES: 1. Cystoscopy. 2. Right ureteroscopy. 3. Right retrograde pyelogram with intraoperative interpretative images. SURGEON: Geoff Mistry MD. RECRUITMENT MANAGER: None. ANESTHESIA: General. OPERATIVE INDICATIONS: This is a 40-year-old female who was found to have an approximately 4-5 mm distal right ureteral stone on recent CAT scan. She was brought to the operating room today for treatment. DESCRIPTION OF PROCEDURE: The patient was brought to the operating room and general anesthesia was induced. Prophylactic antibiotics were infused. She was placed in the dorsal lithotomy position, prepped, and draped in the usual sterile fashion. A rigid cystoscope was inserted into the urethral meatus and advanced to the bladder. A guidewire was advanced up the right collecting system. I then went up the right collecting system with a short semi-rigid ureteroscope and examined the distal ureter all the way up to the proximal ureter. Of note, no stones were seen in the course of the ureter. This indicated that her stone had likely passed. A retrograde pyelogram was performed and was noted for mild right hydroureteronephrosis with no extravasation. There were no filling defects. At this point, I pulled the scope back down and examined it again and no stones were seen inside the ureter. At this point, the guidewire was removed and the cystoscope was inserted back into the urethral meatus. I examined the right ureteral orifice and it effluxed urine very easily and therefore, I did not place a right ureteral stent. The bladder was emptied of all fluids and this marked the conclusion of the procedure. The patient was taken out of the dorsal lithotomy position, awakened from anesthesia, and transported to the recovery room in stable condition. ESTIMATED BLOOD LOSS: 5 mL. COMPLICATIONS: None. SPECIMEN: Kidney stone. PLAN: The patient will follow up in the Urology Clinic in a few weeks for a postoperative visit. [id number]
== END 2021-02-24 12:40 | disposition home or self-care (01) ==
LOC: M SDC 09:43
PROVIDERS: ATTEND Urology
DX: N20.1 Calculus of ureter (principal); G43.909 Migraine, unspecified, not intractable, without status migrainosus; M79.7 Fibromyalgia; J45.909 Unspecified asthma, uncomplicated; F41.9 Anxiety disorder, unspecified; F32.9 Major depressive disorder, single episode, unspecified; Z79.899 Other long term (current) drug therapy; Z91.040 Latex allergy status; Z91.041 Radiographic dye allergy status; Z88.8 Allergy status to other drugs, medicaments and biological substances; F90.9 Attention-deficit hyperactivity disorder, unspecified type; F12.10 Cannabis abuse, uncomplicated; D64.9 Anemia, unspecified
CPT/HCPCS: 52005; 74420; J0131; J0690; J1100; J1885; J2250; J2405; J3010; Q9961